=== PATIENT | female | born 1995 | race Caucasian/White ===

== ENCOUNTER → 2017-07-31 | Outpatient (CLI) | payer OTHER | LOC: M LRY 16:52 | PROVIDERS: ATTEND Nurse Practitioner Family | DX: J02.9 Acute pharyngitis, unspecified (principal) ==

== ENCOUNTER → 2017-07-31 | Outpatient (REF) | payer OTHER | LOC: M SFHCLERA 18:54 | PROVIDERS: ATTEND Nurse Practitioner Family | DX: J02.9 Acute pharyngitis, unspecified (principal) ==

== ENCOUNTER → 2018-09-07 | Outpatient (REF) | payer OTHER | LOC: M SFHCLERA 13:17 | DX: N39.0 Urinary tract infection, site not specified (principal) | CPT/HCPCS: 87086 ==

== ENCOUNTER → 2018-10-12 | Outpatient (CLI) | payer MEDICAID, OTHER, SELFPAY | LOC: M WUC 15:54 | PROVIDERS: ATTEND Physician Assistant | DX: Z33.1 Pregnant state, incidental (principal) ==

== ENCOUNTER → 2018-10-23 | Outpatient (REF) | payer OTHER, SELFPAY ==
[2018-10-23 19:04] LABS: CHLAMYDIA DNA AMPLIFICATION NEGATIVE (NEGATIVE); GC DNA AMPLIFICATION NEGATIVE (NEGATIVE)
== END ==
LOC: M SFHCLERA 09:54
PROVIDERS: ATTEND Physician Assistant
DX: N39.0 Urinary tract infection, site not specified (principal)

== ENCOUNTER → 2021-06-07 | Outpatient (REF) | payer OTHER | LOC: M LAB REF 11:53 | PROVIDERS: ATTEND Physician Assistant | DX: J00 Acute nasopharyngitis [common cold] (principal) ==

== ENCOUNTER → 2021-10-07 | Outpatient (REF) ==
[2021-10-07 14:22] LABS: RSV AMPLIFICATION NEGATIVE (NEGATIVE)
== END ==
LOC: M LABSMTC 11:49
PROVIDERS: ATTEND Family Medicine
DX: Z20.822 Contact with and (suspected) exposure to COVID-19 (principal)

== ENCOUNTER 2021-10-30 09:37 | Emergency (ER) | payer OTHER ==
[~2021-10-30] VITALS: Ht 160 cm; Wt 51.8 kg
--- OUTSIDE RECORDS SUMMARY | 2021-10-30 09:43 | CCD ---
Author Author [facility] Organization [facility] Address Unknown Phone Unavailable Care Team Providers Care Litigation Coordinator Name Role Phone [place]-An, Marlena DO Unavailable Unavailable [place]-An, Marlena DO Unavailable Unavailable [place]-An, Marlena DO Unavailable Unavailable [place]-An, Marlena DO Unavailable Unavailable Ria-An, Marlena DO Unavailable Unavailable Ria-An, Marlena DO Unavailable Unavailable Ria-An, Marlena DO Unavailable Unavailable [place]-An, Marlena DO Unavailable Unavailable [place]-An, Marlena DO Unavailable Unavailable Ria-An, Marlena DO Unavailable Unavailable [place]-An, Marlena DO Unavailable Unavailable [place]-An, Marlena DO Unavailable Unavailable Ria-An, Marlena DO Unavailable Unavailable [place]-An, Marlena DO Unavailable Unavailable Ria-An, Marlena DO Unavailable Unavailable Ria-An, Marlena DO Unavailable Unavailable [place]-An, Marlena DO Unavailable Unavailable [place]-An, Marlena DO Unavailable Unavailable [place]-An, Marlena DO Unavailable Unavailable Ria-An, Marlena DO Unavailable Unavailable [place]-An, Marlena DO Unavailable Unavailable Ria-An, Marlena DO Unavailable Unavailable [place]-An, Marlena DO Unavailable Unavailable [place]-An, Marlena DO Unavailable Unavailable [place]-An, Marlena DO Unavailable Unavailable [place]-An, Marlena DO Unavailable Unavailable Ria-An, Marlena DO Unavailable Unavailable [place]-An, Marlena DO Unavailable Unavailable [place]-An, Marlena DO Unavailable Unavailable Ria-An, Marlena DO Unavailable Unavailable Ria-An, Marlena DO Unavailable Unavailable Ria-An, Marlena DO Unavailable Unavailable [place]-An, Marlena DO Unavailable Unavailable Ria-An, Marlena DO Unavailable Unavailable [place]-An, Marlena DO Unavailable Unavailable [place]-An, Marlena DO Unavailable Unavailable [place]-An, Marlena DO Unavailable Unavailable Ria-An, Marlena DO Unavailable Unavailable [place]-An, Marlena DO Unavailable Unavailable [place]-An, Marlena DO Unavailable Unavailable Ria-An, Marlena DO Unavailable Unavailable Ria-An, Marlena DO Unavailable Unavailable [place]-An, Marlena DO Unavailable Unavailable Ria-An, Marlena DO Unavailable Unavailable Ria-An, Marlena DO Unavailable Unavailable Ria-An, Marlena DO Unavailable Unavailable Ria-An, Marlena DO Unavailable Unavailable Ria-An, Marlena DO Unavailable Unavailable [place]-An, Marlena DO Unavailable Unavailable Ria-An, Marlena DO Unavailable Unavailable Ria-An, Marlena DO Unavailable Unavailable Ria-An, Marlena DO Unavailable Unavailable [place]-An, Marlena DO Unavailable Unavailable [place]-An, Marlena DO Unavailable Unavailable [place]-An, Marlena DO Unavailable Unavailable Ria-Na, Marlena DO Unavailable Unavailable Ria-An, Marlena DO Unavailable Unavailable Ria-An, Marlena DO Unavailable Unavailable [place]-An, Marlena DO Unavailable Unavailable [place]-An, Marlena DO Unavailable Unavailable [place]-An, Marlena DO Unavailable Unavailable Ria-An, Marlena DO Unavailable Unavailable [place]-An, Marlena DO Unavailable Unavailable Ria-An, Marlena DO Unavailable Unavailable [place]-An, Marlena DO Unavailable Unavailable Ria-An, Marlena DO Unavailable Unavailable [place]-An, Marlena DO Unavailable Unavailable Ria-An, Marlena DO Unavailable Unavailable [place]-An, Marlena DO Unavailable Unavailable Doctor Provided, Family PHYS No Family Unavailable U navailable RAMSEY, RILEY KAYLEEN INSURANCE COORDINATOR Unavailable Unavailable RAMSEY, RILEY KAYLEEN INSURANCE COORDINATOR Unavailable Unavailable RAMSEY, RILEY KAYLEEN INSURANCE COORDINATOR Unavailable Unavailable RAMSEY, RILEY KAYLEEN INSURANCE COORDINATOR Unavailable Unavailable RAMSEY, RILEY KAYLEEN INSURANCE COORDINATOR Unavailable Unavailable RAMSEY, RILEY KAYLEEN INSURANCE COORDINATOR Unavailable Unavailable RAMSEY, RILEY KAYLEEN INSURANCE COORDINATOR Unavailable Unavailable RAMSEY, RILEY KAYLEEN INSURANCE COORDINATOR Unavailable Unavailable RAMSEY, RILEY KAYLEEN INSURANCE COORDINATOR Unavailable Unavailable RAMSEY, RILEY KAYLEEN INSURANCE COORDINATOR Unavailable Unavailable RAMSEY, RILEY KAYLEEN INSURANCE COORDINATOR Unavailable Unavailable RAMSEY, RILEY KAYLEEN INSURANCE COORDINATOR Unavailable Unavailable RAMSEY, RILEY KAYLEEN INSURANCE COORDINATOR Unavailable Unavailable RAMSEY, RILYE KAYLEEN INSURANCE COORDINATOR Unavailable Unavailable RAMSEY, RILEY KAYLEEN INSURANCE COORDINATOR Unavailable Unavailable RAMSEY, RILEY KAYLEEN INSURANCE COORDINATOR Unavailable Unavailable RAMSEY, RILEY KAYLEEN INSURANCE COORDINATOR Unavailable Unavailable RAMSEY, RILEY KAYLEEN INSURANCE COORDINATOR Unavailable Unavailable RAMSEY, RILEY KAYLEEN INSURANCE COORDINATOR Unavailable Unavailable RAMSEY, RILEY KAYLEEN INSURANCE COORDINATOR Unavailable Unavailable RAMSEY, RILEY KAYLEEN INSURANCE COORDINATOR Unavailable Unavailable RAMSEY, RILEY KAYLEEN INSURANCE COORDINATOR Unavailable Unavailable RAMSEY, RILEY KAYLEEN INSURANCE COORDINATOR Unavailable Unavailable Didier, D Vito INSURANCE COORDINATOR Unavailable Unavailable Didier, D Vito INSURANCE COORDINATOR Unavailable Unavailable Didier, D Vito INSURANCE COORDINATOR Unavailable Unavailable Didier, D Vito INSURANCE COORDINATOR Unavailable Unavailable Didier, D Vito INSURANCE COORDINATOR Unavailable Unavailable Didier, D Vito INSURANCE COORDINATOR Unavailable Unavailable Didier, D Vito INSURANCE COORDINATOR Unavailable Unavailable Didier, D Vito INSURANCE COORDINATOR Unavailable Unavailable Didier, D Vito INSURANCE COORDINATOR Unavailable Unavailable Didier, D Vito INSURANCE COORDINATOR Unavailable Unavailable Didier, D Vito INSURANCE COORDINATOR Unavailable Unavailable Didier, D Vito INSURANCE COORDINATOR Unavailable Unavailable Didier, D Vito INSURANCE COORDINATOR Unavailable Unavailable Didier, D Vito INSURANCE COORDINATOR Unavailable Unavailable Didier, D Vito INSURANCE COORDINATOR Unavailable Unavailable Didier, D Vito INSURANCE COORDINATOR Unavailable Unavailable Didier, D Vito INSURANCE COORDINATOR Unavailable Unavailable Didier, D Vito INSURANCE COORDINATOR Unavailable Unavailable Didier, D Vito INSURANCE COORDINATOR Unavailable Unavailable Didier, D Vito INSURANCE COORDINATOR Unavailable Unavailable Didier, D Vito INSURANCE COORDINATOR Unavailable Unavailable Didier, D Vito INSURANCE COORDINATOR Unavailable Unavailable Didier, D Vito INSURANCE COORDINATOR Unavailable Unavailable Didier, D Vito INSURANCE COORDINATOR Unavailable Unavailable Didier, D Vito INSURANCE COORDINATOR Unavailable Unavailable Didier, D Vito INSURANCE COORDINATOR Unavailable Unavailable Didier, D Vito INSURANCE COORDINATOR Unavailable Unavailable Didier, D Vito INSURANCE COORDINATOR Unavailable Unavailable Didier, D Vito INSURANCE COORDINATOR Unavailable Unavailable Didier, D Vito INSURANCE COORDINATOR Unavailable Unavailable Didier, D Vito INSURANCE COORDINATOR Unavailable Unavailable Didier, D Vito INSURANCE COORDINATOR Unavailable Unavailable Didier, D Vito INSURANCE COORDINATOR Unavailable Unavailable Didier, D Vito INSURANCE COORDINATOR Unavailable Unavailable Didier, D Vito INSURANCE COORDINATOR Unavailable Unavailable Didier, D Vito INSURANCE COORDINATOR Unavailable Unavailable Didier, D Vito INSURANCE COORDINATOR Unavailable Unavailable Didier, D Vito INSURANCE COORDINATOR Unavailable Unavailable Didier, D Vito INSURANCE COORDINATOR Unavailable Unavailable Didier, D Vito INSURANCE COORDINATOR Unavailable Unavailable Didier, D Vito INSURANCE COORDINATOR Unavailable Unavailable Huitron, L Kristine INSURANCE COORDINATOR Unavailable Unavailable Huitron, L Kristine INSURANCE COORDINATOR Unavailable Unavailable Huitron, L Kristine INSURANCE COORDINATOR Unavailable Unavailable Huitron, L Kristine INSURANCE COORDINATOR Unavailable Unavailable Huitron, L Kristine INSURANCE COORDINATOR Unavailable Unavailable Huitron, L Kristine INSURANCE COORDINATOR Unavailable Unavailable Huitron, L Kristine INSURANCE COORDINATOR Unavailable Unavailable Huitron, L Kristine INSURANCE COORDINATOR Unavailable Unavailable Huitron, L Kristine INSURANCE COORDINATOR Unavailable Unavailable Huitron, L Kristine INSURANCE COORDINATOR Unavailable Unavailable Huitron, L Kristine INSURANCE COORDINATOR Unavailable Unavailable Huitron, L Kristine INSURANCE COORDINATOR Unavailable Unavailable Huitron, L Kristine INSURANCE COORDINATOR Unavailable Unavailable Huitron, L Kristine INSURANCE COORDINATOR Unavailable Unavailable Huitron, L Kristine INSURANCE COORDINATOR Unavailable Unavailable Huitron, L Kristine INSURANCE COORDINATOR Unavailable Unavailable Huitron, L Kristine INSURANCE COORDINATOR Unavailable Unavailable Huitron, L Kristine INSURANCE COORDINATOR Unavailable Unavailable Huitron, L Kristine INSURANCE COORDINATOR Unavailable Unavailable Huitron, L Kristine INSURANCE COORDINATOR Unavailable Unavailable Huitron, L Kristine INSURANCE COORDINATOR Unavailable Unavailable Huitron, L Kristine INSURANCE COORDINATOR Unavailable Unavailable Huitron, L Kristine INSURANCE COORDINATOR Unavailable Unavailable Huitron, L Kristine INSURANCE COORDINATOR Unavailable Unavailable Huitron, L Kristine INSURANCE COORDINATOR Unavailable Unavailable Huitron, L Kristine INSURANCE COORDINATOR Unavailable Unavailable Huitron, L Kristine INSURANCE COORDINATOR Unavailable Unavailable Huitron, L Kristine INSURANCE COORDINATOR Unavailable Unavailable Huitron, L Kristine INSURANCE COORDINATOR Unavailable Unavailable Huitron, L Kristine INSURANCE COORDINATOR Unavailable Unavailable Huitron, L Kristine INSURANCE COORDINATOR Unavailable Unavailable Huitron, L Kristine INSURANCE COORDINATOR Unavailable Unavailable Huitron, L Kristine INSURANCE COORDINATOR Unavailable Unavailable Huitron, L Kristine INSURANCE COORDINATOR Unavailable Unavailable Huitron, L Kristine INSURANCE COORDINATOR Unavailable Unavailable Huitron, L Kristine INSURANCE COORDINATOR Unavailable Unavailable Huitron, L Kristine INSURANCE COORDINATOR Unavailable Unavailable Huitron, L Kristine INSURANCE COORDINATOR Unavailable Unavailable Huitron, L Kristine INSURANCE COORDINATOR Unavailable Unavailable Huitron, L Kristine INSURANCE COORDINATOR Unavailable Unavailable Huitron, L Kristine INSURANCE COORDINATOR Unavailable Unavailable Huitron, L Kristine INSURANCE COORDINATOR Unavailable Unavailable Moshe Ramirez MD Unavailable Unavailable Moshe Ramirez MD Unavailable Unavailable Moshe Ramirez MD Unavailable Unavailable Moshe Ramirez MD Unavailable Unavailable Moshe Ramirez MD Unavailable Unavailable Moshe Ramirez MD Unavailable Unavailable Moshe Ramirez MD Unavailable Unavailable Moshe Ramirez MD Unavailable Unavailable Moshe Ramirez MD Unavailable Unavailable Moshe Ramirez MD Unavailable Unavailable Moshe Ramirez MD Unavailable Unavailable Moshe Ramirez MD Unavailable Unavailable Moshe Ramirez MD Unavailable Unavailable Moshe Ramirez MD Unavailable Unavailable Moshe Ramirez MD Unavailable Unavailable Moshe Ramirez MD Unavailable Unavailable Moshe Ramirez MD Unavailable Unavailable Moshe Ramirez MD Unavailable Unavailable Moshe Ramirez MD Unavailable Unavailable Moshe Ramirez MD Unavailable Unavailable Moshe Ramirez MD Unavailable Unavailable Moshe Ramirez MD Unavailable Unavailable Moshe Ramirez MD Unavailable Unavailable Moshe Ramirez MD Unavailable Unavailable Moshe Ramirez MD Unavailable Unavailable Moshe Ramirez MD Unavailable Unavailable Moshe Ramirez MD Unavailable Unavailable Moshe Ramirez MD Unavailable Unavailable Moshe Ramirez MD Unavailable Unavailable Moshe Ramirez MD Unavailable Unavailable Moshe Ramirez MD Unavailable Unavailable Moshe Ramirez MD Unavailable Unavailable Moshe Ramirez MD Unavailable Unavailable Moshe Ramirez MD Unavailable Unavailable Moshe Ramirez MD Unavailable Unavailable Moshe Ramirez MD Unavailable Unavailable Moshe Ramirez MD Unavailable Unavailable Moshe Ramirez MD Unavailable Unavailable Moshe Ramirez MD Unavailable Unavailable Moshe Ramirez MD Unavailable Unavailable Moshe Ramirez MD Unavailable Unavailable Moshe Ramirez MD Unavailable Unavailable Moshe Ramirez MD Unavailable Unavailable Moshe Ramirez MD Unavailable Unavailable Moshe Ramirez MD Unavailable Unavailable Rosalva Gaming MD Unavailable Unavailable Rosalva Gaming MD Unavailable Unavailable Rosalva Gaming MD Unavailable Unavailable Rosalva Gaming MD Unavailable Unavailable Rosalva Gaming MD Unavailable Unavailable Rosalva Gaming MD Unavailable Unavailable Kunnumpurath, F Lena MD Unavailable Unavailable Kunnumpurath, F Lena MD Unavailable Unavailable Kunnumpurath, F Lena MD Unavailable Unavailable Kunnumpurath, F Lena MD Unavailable Unavailable Kunnumpurath, F Lena MD Unavailable Unavailable Kunnumpurath, F Lena MD Unavailable Unavailable [place]unnump[place]ath, F Lena MD Unavailable Unavailable Kunnump[place]ath, F Lena MD Unavailable Unavailable Kunnumpurath, F Lena MD Unavailable Unavailable Kunnumpurath, F Lena MD Unavailable Unavailable Kunnumpurath, F Lena MD Unavailable Unavailable Kunnumpurath, F Lena MD Unavailable Unavailable Kunnumpurath, F Lena MD Unavailable Unavailable Kunnumpurath, F Lena MD Unavailable Unavailable Kunnumpurath, F Lena MD Unavailable Unavailable Kunnumpurath, F Lena MD Unavailable Unavailable Kunnumpurath, F Lena MD Unavailable Unavailable Kunnumpurath, F Lena MD Unavailable Unavailable Kunnumpurath, F Lena MD Unavailable Unavailable Kunnumpurath, F Lena MD Unavailable Unavailable Kunnumpurath, F Lena MD Unavailable Unavailable Kunnumpurath, F Lena MD Unavailable Unavailable Kunnumpurath, F Lena MD Unavailable Unavailable Kunnumpurath, F Lena MD Unavailable Unavailable Kunnumpurath, F Lena MD Unavailable Unavailable Kunnumpurath, F Lena MD Unavailable Unavailable Kunnumpurath, F Lena MD Unavailable Unavailable Kunnumpurath, F Lena MD Unavailable Unavailable Kunnumpurath, F Lena MD Unavailable Unavailable Kunnumpurath, F Lena MD Unavailable Unavailable Kunn[place]urath, F Lena MD Unavailable Unavailable Kunnumpurath, F Lena MD Unavailable Unavailable Kunnumpurath, F Lena MD Unavailable Unavailable Kunnumpurath, F Lena MD Unavailable Unavailable Kunnumpurath, F Lena MD Unavailable Unavailable Kunnumpurath, F Lena MD Unavailable Unavailable Kunnumpurath, F Lena MD Unavailable Unavailable Kunnumpurath, F Lena MD Unavailable Unavailable Kunnumpurath, F Lena MD Unavailable Unavailable Kunnumpurath, F Lena MD Unavailable Unavailable RING, K VANESA PA Unavailable Unavailable RING, K VANESA PA Unavailable Unavailable RING, K VANESA PA Unavailable Unavailable RING, K VANESA PA Unavailable Unavailable RING, K VANESA PA Unavailable Unavailable RING, K VANESA PA Unavailable Unavailable RING, K VANESA PA Unavailable Unavailable RING, K VANESA PA Unavailable Unavailable RING, K VANESA PA Unavailable Unavailable RING, K VANESA PA Unavailable Unavailable RING, K VANESA PA Unavailable Unavailable RING, K VANESA PA Unavailable Unavailable RING, K VANESA PA Unavailable Unavailable RING, K VANESA PA Unavailable Unavailable RING, K VANESA PA Unavailable Unavailable RING, K VANESA PA Unavailable Unavailable RING, K VANESA PA Unavailable Unavailable RING, K VANESA PA Unavailable Unavailable RING, K VANESA PA Unavailable Unavailable RING, K VANESA PA Unavailable Unavailable RING, K VANESA PA Unavailable Unavailable RING, K VANESA PA Unavailable Unavailable RING, K VANESA PA Unavailable Unavailable [facility], [facility] Unavailable Unavailable of [facility] Medicine Occupation Unavailable Unavailable BUMBANAC, A STAR INSURANCE COORDINATOR Unavailable Unavailable BUMBANAC, A STAR INSURANCE COORDINATOR Unavailable Unavailable BUMBANAC, A STAR INSURANCE COORDINATOR Unavailable Unavailable BUMBANAC, A STAR INSURANCE COORDINATOR Unavailable Unavailable BUMBANAC, A STAR INSURANCE COORDINATOR Unavailable Unavailable BUMBANAC, A STAR INSURANCE COORDINATOR Unavailable Unavailable BUMBANAC, A STAR INSURANCE COORDINATOR Unavailable Unavailable BUMBANAC, A STAR INSURANCE COORDINATOR Unavailable Unavailable BUMBANAC, A STAR INSURANCE COORDINATOR Unavailable Unavailable BUMBANAC, A STAR INSURANCE COORDINATOR Unavailable Unavailable BUMBANAC, A STAR INSURANCE COORDINATOR Unavailable Unavailable BUMBANAC, A STAR INSURANCE COORDINATOR Unavailable Unavailable BUMBANAC, A STAR INSURANCE COORDINATOR Unavailable Unavailable BUMBANAC, A STAR INSURANCE COORDINATOR Unavailable Unavailable BUMBANAC, A STAR INSURANCE COORDINATOR Unavailable Unavailable BUMBANAC, A STAR INSURANCE COORDINATOR Unavailable Unavailable BUMBANAC, A STAR INSURANCE COORDINATOR Unavailable Unavailable BUMBANAC, A STAR INSURANCE COORDINATOR Unavailable Unavailable BUMBANAC, A STAR INSURANCE COORDINATOR Unavailable Unavailable BUMBANAC, A STAR INSURANCE COORDINATOR Unavailable Unavailable BUMBANAC, A STAR INSURANCE COORDINATOR Unavailable Unavailable BUMBANAC, A STAR INSURANCE COORDINATOR Unavailable Unavailable BUMBANAC, A STAR INSURANCE COORDINATOR Unavailable Unavailable BUMBANAC, A STAR INSURANCE COORDINATOR Unavailable Unavailable BUMBANAC, A STAR INSURANCE COORDINATOR Unavailable Unavailable BUMBANAC, A STAR INSURANCE COORDINATOR Unavailable Unavailable BUMBANAC, A STAR INSURANCE COORDINATOR Unavailable Unavailable BUMBANAC, A STAR INSURANCE COORDINATOR Unavailable Unavailable BUMBANAC, A STAR INSURANCE COORDINATOR Unavailable Unavailable BUMBANAC, A STAR INSURANCE COORDINATOR Unavailable Unavailable BUMBANAC, A STAR INSURANCE COORDINATOR Unavailable Unavailable Re-disclosure Warning The records that you are about to access may contain information from federally-assisted alcohol or drug abuse programs. If such information is present, then the following federally mandated warning applies: This information has been disclosed to you from records protected by federal confidentiality rules (42 CFR part 2). The federal rules prohibit you from making any further disclosure of this information unless further disclosure is expressly permitted by the written consent of the person to whom it pertains or as otherwise permitted by 42 CFR part 2. A general authorization for the release of medical or other information is NOT sufficient for this purpose. The Federal rules restrict any use of the information to criminally investigate or prosecute any alcohol or drug abuse patient.The records that you are about to access may contain highly sensitive health information, the redisclosure of which is protected by Article 27-F of the [facility] Public Health law. If you continue you may have access to information: Regarding HIV / AIDS; Provided by facilities licensed or operated by the [facility] Office of Mental Health; or Provided by the [facility] Office for People With Developmental Disabilities. If such information is present, then the following [facility] mandated warning applies: This information has been disclosed to you from confidential records which are protected by state law. State law prohibits you from making any further disclosure of this information without the specific written consent of the person to whom it pertains, or as otherwise permitted by law. Any unauthorized further disclosure in violation of state law may result in a fine or correction sentence or both. A general authorization for the release of medical or other information is NOT sufficient authorization for further disc losure. Allergies and Adverse Reactions Type Description Substance Reaction Status Data Source(s ) Propensity to adverse reactions NKDA - NO KNOWN DRUG ALLERGI ES NKDA - NO KNOWN DRUG ALLERGIES [facility] Food allergy milk milk [facility] Family History Family Member Name Family Member Gender Family Member Status Date o f Status Description Data Source(s) Unknown Unknown Problem [facility]ENT ([facility] Unknown Male Problem [facility] ([facility]) Encounters Encounter Providers Location Date Indications Data Source(s ) Outpatient Attender: KAYLEEN RAMSEY INSURANCE COORDINATOR 021 03:32:00 PM EDT - 09/13/2021 03:32:00 PM EDT [facility] Outpatient Attender: Lena Amberly MDConsultant: CLINIC [facility] 07/02/2021 08:36:00 AM EDT - 07/02/2021 08:36:00 AM EDT [facility] Outpatient Attender: Lena Amberly MDConsultant: [facility] 06/25/2021 02:32:00 PM EDT - 06/25/2021 02:32:00 PM EDT [facility] Outpatient Attender: Vito Velásquez NPConsultant: [facility] 06/17/2021 07:51:00 AM EDT - 06/17/2021 07:51:00 AM EDT [facility] Outpatient Attender: VANESA Poon 06/07/2021 08:45:00 AM EDT [facility] ([facility] Outpatient Attender: Lena Gaming MDConsultant: [facility] 04/26/2021 10:37:00 AM EDT - 04/26/2021 10:37:00 AM EDT [facility] Outpatient Attender: ADRIANNA KRAMER NPConsultant: [facility] 04/20/2021 02:30:00 PM EDT - [facility]20[facility] ADRIANNA KRAMER NPConsultant: [facility] 02/25/2021 09:58:00 AM EDT - 02/25/2021 09:58:00 AM EDT [facility] Outpatient Attender: KAYLEEN PARKSefe rrer: KAYLEEN RAMSEY NPConsultant: [facility] 01/19/2021 07:42:00 PM EST - 01/19/2021 07:52:00 PM [facility] Outpatient Attender: ADRIANNA KRAMER NP 01/19 03:42:00 PM EST - 01/19/2021 03:42:00 PM [facility] Outpatient Attender: ADRIANNA KRAMER NP 12/25 09:00:00 AM [facility] - 12/25/2020 09:00:00 AM [facility] Outpatient Attender: Marlena Tavarezone DO 2020 07:20:00 AM EST [facility] COVID TESTING [facility] COVID TESTING Outpatient Attender: Marlena Tavarezone DO 2020 06:07:00 AM EST [facility] COVID TESTING [facility] COVID TESTING Outpatient Attender: Marlena Vargas DO 2019 09:38:00 AM EST [facility] COVID TESTING [facility] COVID TESTING Outpatient Attender: Mary Ramirez MD 11/10/2020 09:17:00 AM EST [facility] Outpatient Attender: Marlena Vargas DO 2019 09:32:00 AM EST [facility] COVID TESTING Z20.828 [facility] COVID TESTING Z20.828 Outpatient Attender: Lena Gaming MD 1 01/04/2020 08:54:00 AM EST - 11/03/2020 08:54:00 AM [facility] Outpatient Attender: Marlena Vargas DO 2019 09:20:00 AM EST [facility] COVID19 TESTING [facility] COVID19 TESTING Outpatient Attender: Marlena Vargas DO 2019 01:18:00 PM [facility] COVID TESTING [facility] COVID TESTING Outpatient Attender: KAYLEEN RAMSEY NP 10:01:00 AM EST - 10/19/2020 10:01:00 AM [facility] Outpatient Attender: Kristine Huitron NPReferrer: No Family Doctor Provided 09/25/2020 10:42:00 AM EST - 09/25/2020 11:08:00 AM [facility] Outpatient 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: 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 Outpatient Attender: KAYLEEN RAMSEY NP 020 09:01:00 AM EDT - 09/16/2020 09:01:00 AM [facility] Outpatient Attender: KAYLEEN RAMSEY NP 09:43:00 AM EDT - 09/08/2020 09:43:00 AM EDT [facility] Outpatient Attender: KAYLEEN RAMSEY INSURANCE COORDINATOR 02:11:00 PM EDT - 08/18/2020 02:11:00 PM EDT [facility] Outpatient Attender: KAYLEEN RAMSEY INSURANCE COORDINATOR 11:03:00 AM EDT - 07/29/2020 11:03:00 AM EDT [facility] Immunizations Vaccine Date Status Description Data Source(s) COVID-19 VACCINE Moderna 04/06/2021 12:00:00 AM EDT completed [facility] Complete: YESThis Data wa s Submitted to [facility] Via [employer]. COVID-19 VACCINE Moderna 03/01/2021 12:00:00 AM EDT completed [facility] Vacc[facility] Complete: NOThis Data was Submitted to [facility] Via DNART LIMITADA. Medications Medication Brand Name Start Date Product Form Dose Route Admi nistrative Instructions Pharmacy Instructions Status Indications Reaction Description Data Source(s) NITROFURANTOIN, MACROCRYSTALS 25 MG / Ni trofurantoin, Monohydrate 75 MG Oral Capsule Nitrofurantoin Monohyd/M-Cryst Nitrofurantoin Monohyd/M-Cryst 11/23/2018 12:23:41 PM EST 100 MG completed [facility] Vit No.[id number] ( Vitamin Tablet) 27 mg iron- 800 mcg tablet 11/23/2018 10:56:14 AM EST 1 EACH [facility] Insurance Providers Payer name Policy type / Coverage type Policy ID Covered democrat ID Covered democrat's relationship to shaw Policy Shaw Plan Information [facility] U [id number] Se lf [id number] MEDICAID M [id number] Self [id number] [facility] U [id number] Self [id number] [facility] [place] [id number] [facility] Commercial [id number] Self [id number] MEDICAID [id number] SP [id number] SELF PAY ONLY [facility] [id number] [facility] [id number] MEDICAID -O/P EMERGENCY ROOM [id number] 18 [id number] ANSI-Not a Secondary Insurance [id number] ANSI-Not a Secondary Insurance [id number] [facility] Commercial [id number] [facility] - O/P [id number] 01 [id number] ANSI-Not a Secondary Insurance [id number] [facility] O [id number] P [id number] [facility] PPO O [id number] C [id number] [facility] [id number] [facility] [id number] [facility] Commercial [id number] Family Dependent [id number] [facility] [id number] 19 [id number] [facility] -PHYSICIAN [id number] 18 [id number] [facility] -PHYSICIAN [id number] [facility] -I/P [id number] 18 [id number] [facility]-O/P [id number] 19 [id number] [facility] [id number] 18 [id number] MEDICAID-O/P [id number] MEDICAID [facility] [id number] 18 [id number] MEDICAID -PHYSICIAN [id number] MEDICAID -I/P [id number] 18 [id number] [facility] AT [facility] [id number] 18 [id number] [facility] Commercial [id number] Family Dependent [id number] [facility] [place] UNAVAILABLE 01 UNAVAILABLE [facility] Commercial [id number] Family Dependent [id number] [facility] [id number] 19 [id number] [facility] [place] -O/P [id number] 01 [id number] [facility] [place] [facility] [id number] 01 [id number] [place] Commercial [id number] Family Dependent [facility] [id number] [facility] [id number] 18 [id number] [facility] [id number] 18 [id number] [facility] PLAN [id number] [facility] [id number] Problems, Conditions, and Diagnoses Code Display Name Description Problem Type Effective Dates Data Source(s) O21181 Encounter for routine checking of intrau terine contraceptive device Encounter for routine checking of intrauterine contraceptive device Diagnosis 09/13/2021 03:32:00 PM EDT [facility] N760 Acute vaginitis Acute vaginitis Diagnosis 09/13/2021 03:3 2:00 PM EDT [facility] [id number] Encounter for gynecological examination (general) (routine) without abnormal findings Encounter for gynecological examination (general) (routine) without abnormal findings Diagnosis 09/13/2021 03:32:00 PM EDT [facility] D649 Anemia, unspecified Anemia, unspecified Diagnosis 0 06/25/2021 02:32:00 PM EDT [facility] N390 Urinary tract infection, site not specif ied Urinary tract infection, site not specified Diagnosis 06/17/2021 07:51:00 AM EDT [facility] [id number] CONTACT WITH AND SUSPECTED EXPOSURE TO C OVID-19 CONTACT WITH AND SUSPECTED EXPOSURE TO COVID-19 Diagnosis 12/25/2020 09:00:00 AM EST Ca [facility] E74200 Encounter for insertion of intrauterine contraceptive device Encounter for insertion of intrauterine contraceptive device Diagnosis 09:01:00 AM EDT [facility] Z538 Procedure and treatment not carried out for other reasons Procedure and treatment not carried out for other reasons Diagnosis 09/08/2020 09:43:00 AM EDT [facility] Surgeries/Procedures Procedure Description Date Indications Data Source(s) OFFICE OUTPATIENT VISIT 25 MINUTES 06/07/2021 12:00:00 AM EDT [facility] ([facility], [facility]) Results ID Date Data Source [id number] 10/07/2021 11:15:00 AM EST [facility] Name Value Range Interpretation Code Description Data Carmen rce(s) Supporting Document(s) SARS coronavirus 2 RNA [Presence] in Res piratory specimen by PRAVIN with probe detection NEGATIVE [facility] This lab was ordered by [facility] a nd reported by [facility]. ID Date Data Source [id number] 09/17/2021 07:40:00 AM EDT [facility] Name Value Range Interpretation Code Description Data Carmen rce(s) Supporting Document(s) SOURCE: Genital [facility] Chlamydia trachomatis rRNA [Presence] in Unspecified specimen by Probe and target amplification method Negative Negative [facility] Neisseria gonorrhoeae rRNA [Presence] in Unspecified specimen by Probe and target amplification method Negative Negative [facility] ID Date Data Source [id number] 09/16/2021 08:28:00 PM EDT [facility] Name Value Range Interpretation Code Description Data Carmen rce(s) Supporting Document(s) SOURCE: Genital [facility] Kimberly sp rRNA [Presence] in Vaginal fluid by DNA probe Negative N egative [facility] Gardnerella vaginalis rRNA [Presence] in Genital specimen by DNA probe Negative Negative [facility] Trichomonas vaginalis rRNA [Presence] in Genital specimen by DNA probe Negative Negative [facility] ID Date Data Source [id number] 07/02/2021 02:48:00 PM EDT [facility] Name Value Range Interpretation Code Description Data Carmen rce(s) Supporting Document(s) Iron [Mass/volume] in Serum or Plasma 91 UG/DL 42 - 135 [facility] ID Date Data Source [id number] 07/02/2021 02:33:00 PM EDT [facility] Name Value Range Interpretation Code Description Data Carmen rce(s) Supporting Document(s) CBC NO DIFF [facility] ital COMPLETE BLOOD COUNT Leukocytes [#/volume] in Blood by Automated count 4.7 10^3/uL 4.2 - 1 1.0 [facility] Erythrocytes [#/volume] in Blood by Automated count 3.99 10^6/uL 4. 20 - 5.40 L [facility] Hemoglobin [Mass/volume] in Blood 12.7 g/dL 12.0 - 16.0 [facility] Hematocrit [Volume Fraction] of Blood by Automated count 37.1 % 3 7.0 - 47.0 [facility] Erythrocyte mean corpuscular volume [Entitic volume] by Auto mated count 93.0 fL 81.0 - 101 [facility] Erythrocyte mean corpuscular hemoglobin [Entitic mass] by Automated count 31.8 pg 27.0 - 34.0 [facility] Erythrocyte mean corpuscular hemoglobin concentration [Mass/volume] by Automated count 34.2 g/dL 31.0 - 36.0 [facility] Erythrocyte distribution width [Ratio] by Automated count 13.1 % 11.5 - 14.5 [facility] Platelets [#/volume] in Blood by Automated count 231 10^3/uL 150 - 45 0 [facility] Platelet mean volume [Entitic volume] in Blood by Automated count 9.9 fL 7.4 - 10.4 [facility] ID Date Data Source [id number] 06/21/2021 07:49:00 AM EDT [facility] Value Range Interpretation Code Description Data Carmen rce(s) Supporting Document(s) CULTURE URINE [facility] spital _CULTURE URINE_$$[id number]$$380158$$144566$$951760$$889246$$880649$$287257$$809889$$748190$$ 836785$$060797$$699547$$274436$$560888$$944472$$880174$$990131$$454602$$146243$$ 735505$$578429$$928368$$460168$$517825$$681473$$166656$$962932 -- Continued on next page --Patient: YUE Welch Order: [id number] Page 2Culture: CULTURE URINE Status: Final ====$$[id number]$$[id number] DATE/TIME: 06/20/2021 11:05Culture: CULTURE URINE Status: FinalUrine Culture,Comprehensive: T0Rljbm urogenital flora25,000-50,000 colony forming units per mLP1 Test performed by: [facility] Cathryn GUY #: [id number] [address] [place] [address] [phone] [facility] [address]Aefvshb Director : Reyes José MD NPI #:Cathead Operator : 06/21/21.0749.XMT.SENT REF 06/21/21.0749.CM .to DIDIER RUTH via fax ID Date Data Source [id number] 06/07/2021 09:25:00 AM EDT [facility] ([facility]) Name Value Range Interpretation Code Description Data Carmen rce(s) Supporting Document(s) Group A Strep Culture Laboratory test result [facility] ([facility]) No Rx ID Date Data Source [id number] 06/07/2021 12:00:00 AM EDT [facility] Name Value Range Interpretation Code Description Data Carmen rce(s) Supporting Document(s) SARS-CoV2 Rapid Antigen Negative [facility] This lab was reported by [facility]. ID Date Data Source [id number] 04/26/2021 08:06:00 PM EDT [facility] Name Value Range Interpretation Code Description Data Carmen rce(s) Supporting Document(s) Ferritin [Mass/volume] in Serum or Plasma 147.3 ng/mL 3.0 - 105 H [facility] ID Date Data Source [id number] 04/26/2021 08:04:00 PM EDT [facility] Name Value Range Interpretation Code Description Data Carmen rce(s) Supporting Document(s) Iron [Mass/volume] in Serum or Plasma 142 UG/DL 42 - 135 H [facility] ID Date Data Source [id number] 04/26/2021 03:04:00 PM EDT [facility] Name Value Range Interpretation Code Description Data Carmen rce(s) Supporting Document(s) CBC NO DIFF [facility] COMPLETE BLOOD COUNT Leukocytes [#/volume] in Blood by Automated count 5.8 10^3/uL 4.2 - 1 1.0 [facility] Erythrocytes [#/volume] in Blood by Automated count 4.20 10^6/uL 4. 20 - 5.40 [facility] Hemoglobin [Mass/volume] in Blood 13.1 g/dL 12.0 - 16.0 [facility] Hematocrit [Volume Fraction] of Blood by Automated count 39.9 % 3 7.0 - 47.0 [facility] Erythrocyte mean corpuscular volume [Entitic volume] by Auto mated count 95.0 fL 81.0 - 101 [facility] Erythrocyte mean corpuscular hemoglobin [Entitic mass] by Automated count 31.2 pg 27.0 - 34.0 [facility] Erythrocyte mean corpuscular hemoglobin concentration [Mass/volume] by Automated count 32.8 g/dL 31.0 - 36.0 [facility] Erythrocyte distribution width [Ratio] by Automated count 13.6 % 11.5 - 14.5 [facility] Platelets [#/volume] in Blood by Automated count 180 10^3/uL 150 - 45 0 [facility] Platelet mean volume [Entitic volume] in Blood by Automated count 10.0 fL 7.4 - 10.4 [facility] ID Date Data Source [id number] 04/26/2021 01:23:00 PM EDT [facility] Name Value Range Interpretation Code Description Data Carmen rce(s) Supporting Document(s) CULTURE URINE [facility] spital _CULTURE URINE_$$[id number]$$499055$$502523$$243847$$861292$$428606$$828336$$514551$$923204$$ 754977$$470148$$951391$$754093$$642603$$940530$$271110$$345929$$430139$$041846$$ 620185$$883895$$977981$$722233$$420729$$595308$$468873$$627713 -- Continued on next page --Patient: YUE Welch Order: [id number] Page 2Culture: CULTURE URINE Status: Final ==== -- Continued on next page --Patient: YUE Welch Order: [id number] Page 2Culture: CULTURE URINE Status: Prelim =====$$[id number]$$[id number] DATE/TIME: 04/26/2021 12:06Culture: CULTURE URINE Status: FinalIsolate 1 Escherichia coli Flag: A . . . . . . .1Greater than 100,000 colony forming units per mLCefazolin <=4 ug/mLCefazolin with an BRAXTON <=16 predicts susceptibility to the oral agentscefaclor, cefdinir, cefpodoxime, cefprozil, cefuroxime, cephalexin,and loracarbef when used for therapy of uncomplicated urinary tractinfections due to E. coli, Klebsiella pneumoniae, and Proteusmirabilis. Previous result entered on 04/24/2021 06:12 ET Escherichia coliUrine Culture,Comprehensive: H9Dczcoxayfct coli Flag: APatient: YUE WILSON Yuri Order: [id number] Page 3Culture: CULTURE URINE Status: Final ISOLATE 1 Escherichia coli Isolate 1Antibiotic BRAXTON IntUnits ug/mL ----Amoxicillin/Clavulanic Acid S S . . . . . .20-8Ampicillin S S . . . . . .28-1Cefepime S S . . . . . .6644-9Ceftriaxone S S . . . . . .141-2Cefuroxime S S . . . . . .145-3Ciprofloxacin S S . . . . . .185-9Ertapenem S S . . . . . .19818-3Ireevzgner S S . . . . . .267-5Imipenem S S . . . . . .279- 0Levofloxacin S S . . . . . .90956-8Mvfaildar S S . . . . . .6652-2Nitrofurantoin S S . . . . . .363-2Piperacillin/Tazobactam S S . . . . . .412-7Tetracycline S S . . . . . .496-0Tobramycin S S . . . . . .508-2Trimethoprim/Sulfa S S . . . . . .516-5P1 Test performed by: [facility] KAREN #: [id number] [address] [place] [address] [phone] [facility] [address]Iqtfbbz Director : Reyes José MD NPI #:Cathead Operator : 04/24/21.2011.XMT.SENT REF 04/26/21.1324.XMT.SENT REF 04/26/21.132Benjy. .to [facility] via fax ID Date Data Source [id number] 03/02/2021 01:55:00 PM EDT [facility] Name Value Range Interpretation Code Description Data Carmen rce(s) Supporting Document(s) CULTURE URINE [facility] spital _CULTURE URINE_$$[id number]$$566149$$641763$$137857$$377990$$846580$$681677$$864684$$187204$$ 133873$$437201$$002210$$891840$$434549$$915260$$209535$$056105$$567847$$116276$$ 521120$$936374$$789258$$150721$$022659$$273418$$918232$$556663 -- Continued on next page --Patient: YUE WILSON A Order: [id number] Page 2Culture: CULTURE URINE Status: Final ==== -- Continued on next page --Patient: YUE WILSON A Order: [id number] Page 2Culture: CULTURE URINE Status: Prelim =====$$[id number]$$[id number] DATE/TIME: 03/02/2021 08:07Culture: CULTURE URINE Status: FinalIsolate 1 Escherichia coli Flag: A . . . . . . .110,000-25,000 colony forming units per mLCefazolin <=4 ug/mLCefazolin with an BRAXTON <=16 predicts susceptibility to the oral agentscefaclor, cefdinir, cefpodoxime, cefprozil, cefuroxime, cephalexin,and loracarbef when used for therapy of uncomplicated urinary tractinfections due to E. coli, Klebsiella pneumoniae, and Proteusmirabilis. Previous result entered on 02/28/2021 07:31 ET Escherichia coliUrine Culture,Comprehensive: C8Faammwshgma coli Flag: APatient: YUE Welch Order: [id number] Page 3Culture: CULTURE URINE Status: Final ISOLATE 1 Escherichia coli Isolate 1Antibiotic BRAXTON IntUnits ug/mL ----Amoxicillin/Clavulanic Acid S S . . . . . .20-8Ampicillin R R . . . . . .28-1Cefepime S S . . . . . .6644-9Ceftriaxone S S . . . . . .141-2Cefuroxime S S . . . . . .145-3Ciprofloxacin S S . . . . . .185-9Ertapenem S S . . . . . .42991-0Bnoadgpgmg S S . . . . . .267-5Imipenem S S . . . . . .279- 0Levofloxacin S S . . . . . .25666-0Lnpznoxzj S S . . . . . .6652-2Nitrofurantoin S S . . . . . .363-2Piperacillin/Tazobactam S S . . . . . .412-7Tetracycline S S . . . . . .496-0Tobramycin S S . . . . . .508-2Trimethoprim/Sulfa S S . . . . . .516-5P1 Test performed by: [facility] #: [id number] [address] [place] [address] [phone] [facility] [address]Ehvlccf Director : Reyes José MD NPI #:Cathead Operator : 03/01/21.0609.XMT.SENT REF 03/02/21.1355.XMT.SENT REF 03/02/21.1355. .to [facility] via fax ID Date Data Source [id number] 01/22/2021 05:00:00 PM EST [facility] Name Value Range Interpretation Code Description Data Carmen rce(s) Supporting Document(s) SOURCE: Genital [facility] Chlamydia trachomatis rRNA [Presence] in Unspecified specimen by Probe and target amplification method Negative Negative [facility] Neisseria gonorrhoeae rRNA [Presence] in Unspecified specimen by Probe and target amplification method Negative Negative [facility] Trichomonas vaginalis DNA [Presence] in Unspecified specimen by Probe and target amplification method Negative Negative [facility] ID Date Data Source [id number] 12/27/2020 06:50:00 AM EST [facility] Name Value Range Interpretation Code Description Data Carmen rce(s) Supporting Document(s) SARS-CoV-2, PRAVIN Not Detected Not Detected [facility] This nucleic acid amplification test was developed and its performancecharacteristics determined by [employer]. Nucleic acidamplification tests include RT-PCR and TMA. This test has not beenFDA cleared or approved. This test has been authorized by FDA underan Emergency Use Authorization (EUA). This test is only authorizedfor the duration of time the declaration that circumstances existjustifying the authorization of the emergency use of in vitrodiagnostic tests for detection of SARS-CoV-2 virus and/or diagnosisof COVID-19 infection under section 564(b)(1) of the Act, 21 U.S.C.360bbb-3(b) (1), unless the authorization is terminated or revokedsooner.When diagnostic testing is negative, the possibility of a falsenegative result should be considered in the context of a patient'srecent exposures and the presence of clinical signs and symptomsconsistent with COVID- 19. An individual without symptoms of COVID-19and who is not shedding SARS-CoV-2 virus would expect to have anegative (not detected) result in this assay. ID Date Data Source [id number] 12/03/2020 02:12:00 PM EST [facility] Name Value Range Interpretation Code Description Data Carmen rce(s) Supporting Document(s) COVID-19 PRAVIN (SARS-CoV-2) NOT DETECTED NOT DETECTED [facility] A Not Detected (negative) test result fo r this testmeans that SARS- CoV-2 RNA was not present in the specimenabove the limit of detection. A negative result does notrule out the possibility of COVID-19 and should not beused as the sole basis for treatment or patient managementdecisions. If COVID-19 is still suspected, based onexposure history together with other clinical findings,re- testing should be considered in [place] [facility] health authorities. Laboratory test results shouldalways be considered in the context of clinicalobservations and epidemiological data in making a finaldiagnosis and patient management decisions.Please review the "Fact Sheets" and FDA authorizedlabeling available for health care providers andpatients using the following websites:https://www.[employer].com/home/Covid-19/HCP/NAAT/fact-nttnh7jjkos://www.[employer].com/home /Covid-19/Patients/NAAT/fact-uiety4Wmab test has been authorized by the FDA under anEmergency Use Authorization (EUA) for use by authorizedlaboratories.Due to the current public health emergency, [employer] is receiving a high volume of samples froma wide variety of swabs and media for COVID-19 testing.In order to serve patients during this public healthcrisis, samples from appropriate clinical sources arebeing tested. Negative test results derived fromspecimens received in non-commercially manufacturedviral collection and transport media, or in media andsample collection kits not yet authorized by FDA forCOVID-19 testing should be cautiously evaluated and thepatient potentially subjected to extra precautions suchas additional clinical monitoring, including collectionof an additional specimen.Methodology: Nucleic Acid Amplification Test (NAAT)includes RT-PCR or TMAAdditional information about COVID-19 can be f oundat the [employer] website:www.[employer]/Covid19.THIS TEST WAS PERFORMED AT:[facility] [id number] MERATI,MD ID Date Data Source [id number] 11/25/2020 01:33:00 PM EST [facility] Name Value Range Interpretation Code Description Data Carmen rce(s) Supporting Document(s) COVID-19 PRAVIN (SARS-CoV-2) NOT DETECTED NOT DETECTED [facility] A Not Detected (negative) test result fo r this testmeans that SARS- CoV-2 RNA was not present in the specimenabove the limit of detection. A negative result does notrule out the possibility of COVID-19 and should not beused as the sole basis for treatment or patient managementdecisions. If COVID-19 is still suspected, based onexposure history together with other clinical findings,re- testing should be considered in consultation [place] [facility] health authorities. Laboratory test results shouldalways be considered in the context of clinicalobservations and epidemiological data in making a finaldiagnosis and patient management decisions.Please review the "Fact Sheets" and FDA authorizedlabeling available for health care providers andpatients using the following websites:https://www.[employer].com/home/Covid-19/HCP/NAAT/fact-odpve5tvybm://www.[employer]/home /Covid-19/Patients/NAAT/fact-ygvem4Nmpq test has been authorized by the FDA under anEmergency Use Authorization (EUA) for use by authorizedlaboratories.Due to the current public health emergency, [employer] is receiving a high volume of samples froma wide variety of swabs and media for COVID-19 testing.In order to serve patients during this public healthcrisis, samples from appropriate clinical sources arebeing tested. Negative test results derived fromspecimens received in non-commercially manufacturedviral collection and transport media, or in media andsample collection kits not yet authorized by FDA forCOVID-19 testing should be cautiously evaluated and thepatient potentially subjected to extra precautions suchas additional clinical monitoring, including collectionof an additional specimen.Methodology: Nucleic Acid Amplification Test (NAAT)includes RT-PCR or TMAAdditional information about COVID-19 can be f oundat the [employer] website:www.[employer]/Covid19.THIS TEST WAS PERFORMED AT:[facility] [address]EYHJEM MERATI,MD ID Date Data Source [id number] 11/23/2020 04:40:00 PM EST [facility] Name Value Range Interpretation Code Description Data Carmen rce(s) Supporting Document(s) COVID-19 PRAVIN (SARS-CoV-2) NOT DETECTED NOT DETECTED [facility] A Not Detected (negative) test result fo r this testmeans that SARS- CoV-2 RNA was not present in the specimenabove the limit of detection. A negative result does notrule out the possibility of COVID-19 and should not beused as the sole basis for treatment or patient managementdecisions. If COVID-19 is still suspected, based onexposure history together with other clinical findings,re- testing should be considered in consultation [place] [facility] health authorities. Laboratory test results shouldalways be considered in the context of clinicalobservations and epidemiological data in making a finaldiagnosis and patient management decisions.Please review the "Fact Sheets" and FDA authorizedlabeling available for health care providers andpatients using the following websites:https://www.[employer] Payment.com/home/Covid-19/HCP/NAAT/fact-[email or web address]://www.[employer]/home /Covid-19/Patients/NAAT/fact-nxity2Jshd test has been authorized by the FDA under anEmergency Use Authorization (EUA) for use by authorizedlaboratories.Due to the current public health emergency, [facility] is receiving a high volume of samples froma wide variety of swabs and media for COVID-19 testing.In order to serve patients during this public healthcrisis, samples from appropriate clinical sources arebeing tested. Negative test results derived fromspecimens received in non-commercially manufacturedviral collection and transport media, or in media andsample collection kits not yet authorized by FDA forCOVID-19 testing should be cautiously evaluated and thepatient potentially subjected to extra precautions suchas additional clinical monitoring, including collectionof an additional specimen.Methodology: Nucleic Acid Amplification Test (NAAT)includes RT-PCR or TMAAdditional information about COVID-19 can be f oundat the [employer] website:[email or web address].[facility].[place]/Covid19.THIS TEST WAS PERFORMED AT:[facility] [id number] MERATI,MD ID Date Data Source [id number] 11/10/2020 11:24:00 AM [facility] Normal result is "[employer]Now Covid-19 Ag n egative"[employer] Covid-19 Ag is a rapid lateral flowimmunochromatographic immunoassayThis test detects both viable(live) and non-viable, SARS-COVand SARS-COV-2.Positive test results do not differentiate between SARS-COVand [id number] results , from patients with symptom onset beyondseven days, should be treated as presumptive andconfirmation with a molecular assay, if necessary, forpatient managementIf the differentiation of specific SARS viruses and strainsis needed, additional testing, in consultation with stateand local public health departments, is required.SARS-CoV-2 Ag Resp Ql IA.rapid Name Value Range Interpretation Code Description Data Carmen rce(s) Supporting Document(s) ID Date Data Source [id number] 11/09/2020 01:32:00 PM [facility] Name Value Range Interpretation Code Description Data Carmen rce(s) Supporting Document(s) COVID-19 PRAVIN (SARS-CoV-2) NOT DETECTED NOT DETECTED [facility] A Not Detected (negative) test result fo r this testmeans that SARS- CoV-2 RNA was not present in the specimenabove the limit of detection. A negative result does notrule out the possibility of COVID-19 and should not beused as the sole basis for treatment or patient managementdecisions. If COVID-19 is still suspected, based onexposure history together with other clinical findings,re- testing should be considered [place] [facility] [place] health authorities. Laboratory test results shouldalways be considered in the context of clinicalobservations and epidemiological data in making a finaldiagnosis and patient management decisions.Please review the "Fact Sheets" and FDA authorizedlabeling available for health care providers andpatients using the following websites:https://www.[employer].[place]/home/Covid-19/HCP/NAAT/fact-qlxoe5dewdw://www.[employer]/home /Covid-19/Patients/NAAT/fact-kmlpr9Wjkc test has been authorized by the FDA under anEmergency Use Authorization (EUA) for use by authorizedlaboratories.Due to the current public health emergency, [facility] is receiving a high volume of samples froma wide variety of swabs and media for COVID-19 testing.In order to serve patients during this public healthcrisis, samples from appropriate clinical sources arebeing tested. Negative test results derived fromspecimens received in non-commercially manufacturedviral collection and transport media, or in media andsample collection kits not yet authorized by FDA forCOVID-19 testing should be cautiously evaluated and thepatient potentially subjected to extra precautions suchas additional clinical monitoring, including collectionof an additional specimen.Methodology: Nucleic Acid Amplification Test (NAAT)includes RT-PCR or TMAAdditional information about COVID-19 can be f oundat the [employer] website:www.[facility].[place]/Covid19.THIS TEST WAS PERFORMED AT:[facility] [id number] MERATI,MD ID Date Data Source [id number] 11/03/2020 02:30:00 PM [facility] Name Value Range Interpretation Code Description Data Carmen rce(s) Supporting Document(s) CBC NO DIFF [facility] COMPLETE BLOOD COUNT Leukocytes [#/volume] in Blood by Automated count 5.0 10^3/uL 4.2 - 1 1.0 [facility] Erythrocytes [#/volume] in Blood by Automated count 4.31 10^6/uL 4. 20 - 5.40 [facility] Hemoglobin [Mass/volume] in Blood 13.4 g/dL 12.0 - 16.0 [facility] Hematocrit [Volume Fraction] of Blood by Automated count 39.5 % 3 7.0 - 47.0 [facility] Erythrocyte mean corpuscular volume [Entitic volume] by Auto mated count 91.6 fL 81.0 - 101 [facility] Erythrocyte mean corpuscular hemoglobin [Entitic mass] by Automated count 31.1 pg 27.0 - 34.0 [facility] Erythrocyte mean corpuscular hemoglobin concentration [Mass/volume] by Automated count 33.9 g/dL 31.0 - 36.0 [facility] Erythrocyte distribution width [Ratio] by Automated count 12.9 % 11.5 - 14.5 [facility] Platelets [#/volume] in Blood by Automated count 217 10^3/uL 150 - 45 0 [facility] Platelet mean volume [Entitic volume] in Blood by Automated count 10.4 fL 7.4 - 10.4 [facility] ID Date Data Source [id number] 10/31/2020 11:47:00 PM EST [facility] Name Value Range Interpretation Code Description Data Carmen e(s) Supporting Document(s) COVID-19 PRAVIN (SARS-CoV-2) NOT DETECTED NOT DETECTED [facility] A Not Detected (negative) test result fo r thistest means that SARS-CoV-2 RNA was not presentin the specimen above the limit of detection. Anegative result does not rule out the possibilityof COVID-19 and should not be used as the solebasis for treatment or patient managementdecisions. If COVID-19 is still suspected, basedon exposure history together with other clinicalfindings, re-testing should be considered inconsultation with public health authorities.Laboratory test results should always be consideredin the context of clinical observations andepidemiological data in making a final diagnosisand patient management decisions.REFERENCE RANGE: NOT DETECTEDThis patient specimen was tested using an FDA EUA poolingmethod.Negative results from pooled testing should not betreated as definitive. If the patient's clinicalsigns and symptoms are inconsistent with a negativeresult or results are necessary for patient management,then the patient should be considered for individualtesting. Specimens with low viral loads may not bedetected in sample pools due to the decreased sensitivityof pooled testing.Please review the "Fact Sheets" and FDA authorizedlabeling available for health care providers andpatients using the following websites:https://www.[employer].[place]/home/Covid-19/HCP/QuestIVD/fact-sheet. htmlhttps://www.[employer]/home/Covid-19/Patients/QuestIVD/fact-sheet. htmlThis test has been authorized by the FDA under anEmergency Use Authorization (EUA) for use by authorizedlaboratories.Due to the current public health emergency, [facility] is receiving a high volume of samples froma wide variety of swabs and media for COVID-19 testing.In order to serve patients during this public healthcrisis, samples from appropriate clinical sources arebeing tested. Negative test results derived fromspecimens received in non- commercially manufacturedviral collection and transport media, or in media andsample collection kits not yet authorized by FDA forCOVID-19 testing should be cautiously evaluated and thepatient potentially subjected to extra precautions suchas additional clinical monitoring, including collectionof an additional specimen.Methodology: Nucleic Acid Amplification Test (NAAT)includes RT-PCR or TMAAdditional information about COVID-19 can be foundat the [employer] website:www.[facility].[place]/Covid19.THIS TEST WAS PERFORMED AT:[facility] [id number] MERATI,MD ID Date Data Source [id number] 10/25/2020 06:07:00 PM EST [facility] Name Value Range Interpretation Code Description Data Carmen rce(s) Supporting Document(s) COVID-19 PRAVIN (SARS-CoV-2) NOT DETECTED NOT DETECTED [facility] A Not Detected (negative) test result fo r this testmeans that SARS- CoV-2 RNA was not present in the specimenabove the limit of detection. A negative result does notrule out the possibility of COVID-19 and should not beused as the sole basis for treatment or patient managementdecisions. If COVID-19 is still suspected, based onexposure history together with other clinical findings,re- testing should be considered in consultation [place] [facility] health authorities. Laboratory test results shouldalways be considered in the context of clinicalobservations and epidemiological data in making a finaldiagnosis and patient management decisions.Please review the "Fact Sheets" and FDA authorizedlabeling available for health care providers andpatients using the following websites:https://www.[employer].com/home/Covid-19/HCP/QuestIVD/fact-sheet.htmlhttps://www.[employer]. [place]/home/Covid-19/Patients/QuestIVD/fact-sheet.htmlThis test has been authorized by the FDA under anEmergency Use Authorization (EUA) for use by authorizedlaboratories.Due to the current public health emergency, [facility] is receiving a high volume of samples froma wide variety of swabs and media for COVID-19 testing.In order to serve patients during this public healthcrisis, samples from appropriate clinical sources arebeing tested. Negative test results derived fromspecimens received in non-commercially manufa cturedviral collection and transport media, or in media andsample collection kits not yet authorized by FDA forCOVID-19 testing should be cautiously evaluated and thepatient potentially subjected to extra precautions suchas additional clinical monitoring, including collectionof an additional specimen.Methodology: Nucleic Acid Amplification Test (NAAT)includes RT-PCR or TMAAdditional information about COVID-19 can be foundat the [employer] website:www.[facility].[place]/Covid19.THIS TEST WAS PERFORMED AT:[facility] [id number] MERATI,MD ID Date Data Source [id number] 09/25/2020 11:24:00 AM [facility] Method of Collection:: Voided Name Value Range Interpretation Code Description Data Carmen rce(s) Supporting Document(s) Hemoglobin [Moles/volume] in Blood 13.1 g/dL 10.7-15.4 N [facility] Hematocrit [Volume Fraction] of Blood by Automated count 40.2 % 3 7-47 N [facility] ID Date Data Source [id number] 09/25/2020 02:37:00 PM [facility] Method of Collection:: Voided Name Value Range Interpretation Code Description Data Carmen rce(s) Supporting Document(s) Glucose [Mass/volume] in Serum or Plasma 88 mg/dL 74-106 N [facility] ID Date Data Source [id number] 09/28/2020 01:42:00 PM [facility] Method of Collection:: Voided Name Value Range Interpretation Code Description Data Carmen rce(s) Supporting Document(s) Varicella zoster virus IgG Ab [Units/volume] in Serum by Immunoassay 1445.00 index [facility] l Index Interpretatio n --------- <135.00 Negative - Antibody not detected 135.00 - 164.99 Equivocal > or = 165.00 Positive - Antibody detected A positive result indicates that the patient has antibody to VZV but does not differentiate between an active or past infection. The clinical d iagnosis must be interpreted in conjunction with the clinical signs and symptoms of the patient. This assay reliably measures immunity due to previous infection but may not be sensitive enough to detect antibodies induced by vaccination. Thus, a negative result in a vaccinated individual does not necessarily indicate susceptibility to VZV infection. A more sensitive test for vaccination-induced immunity is Varicella Zoster Virus Antibody Immunity Screen, ACIF.THIS TEST WAS PERFORMED AT:[facility] [id number] MERATI,MD ID Date Data Source [id number] 09/25/2020 11:34:00 AM [facility] Method of Collection:: Voided Name Value Range Interpretation Code Description Data Carmen rce(s) Supporting Document(s) Color of Urine [facility] Appearance of Urine CLEAR Abnormal (applies to non-nu meric results) [facility] pH of Urine by Test strip 8.5 5-8 [facility] Specific gravity of Urine by Refractometry 1.024 1.005-1.030 [facility] Leukocyte esterase [Presence] in Urine by Test strip NEGAT PEDRO [facility] Nitrite [Presence] in Urine by Test strip NEGATIVE [facility] Protein [Presence] in Urine by Test strip NEGATIVE [facility] Glucose [Mass/volume] in Urine by Automated test strip NEGATIVE NEG ATIVE [facility] Ketones [Presence] in Urine by Test strip NEGATIVE [facility] Urobilinogen [Presence] in Urine 0.2-1 EU/dl [facility] Bilirubin.total [Presence] in Urine by Automated test strip NEGATIVE [facility] Erythrocytes [#/volume] in Urine by Test strip NEGATIVE NEGATIVE [facility] URINE MICROSCOPIC ADDED NO [facility] ID Date Data Source [id number] 09/25/2020 10:45:00 AM EST [facility] Patient Name: STEVE TURNER OB: 1995 Sex: F Pt Unit #: [id number] Location:AMB.EXT Provider: Visit Date/Time: 09/25/20 Primary Insurance: Self Pay Secondary Insurance: ADDENDUM Office Procedure Documentation entered by Manisha Stephen 09/25/20 11:19: Office Meds tuberculin PPD Performing Provider: RACHEL Sargent Administered by: Manisha Stephen on 09/25/20 11:00 Dose [address] Admin Location Lot Number Expiration Date NDC Manufactu rer 0.1 mL intradermal left forearm [id number] 06/16/22 07551-335-09 [employer] <Electronically signed by Manisha Stephen > Addendum Signed By: Date/Time: 09/25/20 1119 Intake Vital Signs 09/25/20 10:50 Current Height 5 ft 3 in Current Weight 120 lb 4 oz Weight Measurement Method Standing Scale BMI 21.2 BP 118/70 Blood Pressure Location Lt brachial Position Sitting Respiration 18 Pulse 73 Pulse Strength Normal Pulse Source Pulse Oximeter Temp 98.8 F Temp Source Oral Pulse Oximetry (%) 99 Oxygen Delivery Method room air Intake Visit Reasons: Occ Med physical Nurse Note: Pt presents today for Occ Med physical. 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 Pt states that she has been well and has no current medical concerns. 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 1. Little interest or pleasure in doing things: not at all 2. Feeling down, depressed, or hopeless: not at all Total score: 0 HIV Testing Offer - ages 13-64 HIV testing Offer: No Requirement for HIV testing offer been met?: Patient reports past refusal SBIRT Annual Questionnaire Are you currently in recovery for alcohol or substance use?: No How many times in the past year have you had 4 or more drinks in a day?: None How many times in the past year have you used a recreational drug or used a prescription medication for nonmedical reasons?: None Do you need a note to return Do you need a note to return to daycare/school/sports/work: No Coronavirus Screening Screening Have you traveled outside of [facility] or [facility] in the last 14 days.: No Has patient experienced coronavirus symptoms: No [facility] Surgical History History of placement of ear tubes Hx of section Status post right foot surgery Social History Does the Patient have a Healthcare Proxy: No Does Patient have a DNR?: No Does Patient have a Living Will?: No household members: family marital status: Single lives independently: Yes number of children: 2 service: No fci: No current occupational exposures/hazards: No pets and animals: No Hx Recent Travel (where): No do you think of yourself as: straight/heterosexual current gender identity: female Smoking Status: Never smoker alcohol intake: never substance use type: does not use Sickle cell Sickle Cell Screening:: Not indicated HPI Additional HPI HPI Details: Here for employment history and physical. Paperwork reviewed which included check list of review of systems. 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 She has history ofanemia. Review of Systems Const All systems reviewed are unremarkable except as noted in HPI and below Exam Const General: cooperative, healthy appearing, no acute distress and well developed Orientation: alert, awake and oriented x3 HENMT Head: normocephalic Ears: hearing grossly normal bilaterally and TM's normal bilaterally General nose exam: external nose normal Face and sinus: normal facial exam Mouth: oral mucosae normal Teeth and gingiva: dentition normal Throat: posterior oropharynx normal Eyes General: appearance normal, both eyes and all related structures Alignment and Position: alignment normal Eyelids: eyelids normal Conjunctivae: conjunctivae normal Sclera: sclerae normal Pupils: PERRL EOM: EOM intact bilaterally Neck Neck: normal visual inspection and full ROM Carotids: normal carotid upstroke Lymphatic: no lymphadenopathy noted Chest Chest: normal inspection of the chest Resp Effort Inspection: normal respiratory effort Auscultation: clear to auscultation bilaterally Other: respiratory rate normal range Cardio Rate: regular rate and other (heart rate in normal range) Rhythm: regular rhythm Heart Sounds: S1 normal and S2 normal GI Inspection: Yes normal to inspection Palpation: soft, no guarding, no masses and nontender Auscultation: normal bowel sounds General: deferred Other: exam deferred Musc Cervical Spine: normal cervical lordosis and cervical ROM normal Thoracic/Lumbar Spine: thoracic and lumbar spine normal to inspection and thoraco-lumbar ROM normal Other: walks in with a normal gait Skin Lesions: no lesions Rashes: no rashes Hair: normal Nails: normal Other: warm and dry, color and texture normal Neuro General: gait normal, tone normal, moves all extremities, normal light touch, pain and propioceptionand no focal motor deficits Cranial Nerves: PERRL, EOM intact bilaterally, hearing normal and other (cranial nerves III-XII grossly intact) Cognition: normal cognition Speech: speech normal Gait: normal gait Motor: muscle tone normal throughout, strength 5/5 throughout and no movement abnormalities noted Sensory Exam: no sensory deficits noted Pupils: Normal pupillary reactivity/response: bilateral Extrem General: normal to inspection, full ROM and normal exam except as noted Psych Appearance: grossly normal and well kempt Speech and Movement: speech and movement normal Mood: congruent mood Affect: normal affect Attitude: cooperative Thought Process: normal Thought Content: normal 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 Forms signed. PPD placed. labs ordered Orders Other Medications: New: tuberculin PPD 0.1 mL intradermal ONCE 0.1 mL 0RF Z02.1 Other Orders: Orders: INJ - TB intradermal test Today Z02.1 <Electronically signed by Kristine Huitron ASPHALT MIXING MACHINE OPERATOR> 09/25/20 1112 Name Value Range Interpretation Code Description Data Carmen rce(s) Supporting Document(s) Procedure Social History Code Duration Value Status Description Data Source(s ) Smoking 06/07/2021 12:00:00 AM EDT Patient has never smoked co mpleted Patient has never smoked [facility] ([facility], [facility]) 09/25/2020 10:59:21 AM EST Never smoker completed Never [facility] Smoking 09/25/2020 10:59:00 AM EST Never smoker completed Never [facility] Vital Signs ID Date Data Source UNK Name Value Range Interpretation Code Description Data Source(s) Body mass index (BMI) [Ratio] 18.8 kg/m2 18.8 k g/m2 [facility] ([facility], [facility]) Systolic blood pressure 123 mm[Hg] 123 mm[Hg] [facility] ([facility], [facility]) Diastolic blood pressure 86 mm[Hg] 86 mm[Hg] [facility] ([facility], [facility]) Heart rate 86 /min 86 /min [facility] ([facility], [facility]) Respiratory rate 16 /min 16 /min [facility] ( [facility]) Oxygen saturation in Arterial blood by Pulse oximetry 96 % 96 % [facility] ([facility], [facility]) Body temperature 98.9 [degF] 98.9 [degF] [facility] ([facility], [facility]) Body weight 106.00 [lb_av] 106.00 [lb_av] [facility] ([facility], [facility]) Body height 63 [in_i] 63 [in_i] [facility] ([facility], [facility]) 5'3"
[2021-10-30] MEDS ORDERED: KETOROLAC 30 MG/ML 1ML VIAL IM ONE (11:35)
[2021-10-30] MEDS ORDERED: LIDOCAINE 5% (LIDODERM) PATCH TD ONE (11:40)
--- OUTSIDE RECORDS SUMMARY | 2021-10-30 12:02 | CCD ---
Author Author [facility] Organization [facility] Address Unknown Phone Unavailable Care Team Providers Care Associate Faculty Name Role Phone Canistota-An, Marlena DO Unavailable Unavailable Canistota-An, Marlena DO Unavailable Unavailable Ria-An, Marlena DO Unavailable Unavailable Canistota-An, Marlena DO Unavailable Unavailable Canistota-An, Marlena DO Unavailable Unavailable Ria-An, Marlena DO Unavailable Unavailable Ria-An, Marlena DO Unavailable Unavailable Canistota-An, Marlena DO Unavailable Unavailable Canistota-An, Marlena DO Unavailable Unavailable Rai-An, Marlena DO Unavailable Unavailable Canistota-An, Marlena DO Unavailable Unavailable Ria-An, Marlena DO Unavailable Unavailable Canistota-An, Marlena DO Unavailable Unavailable Ria-An, Marlena DO Unavailable Unavailable Ria-An, Marlena DO Unavailable Unavailable Canistota-An, Marlena DO Unavailable Unavailable Canistota-An, Marlena DO Unavailable Unavailable Canistota-An, Marlena DO Unavailable Unavailable Canistota-An, Marlena DO Unavailable Unavailable Ria-An, Marlena DO Unavailable Unavailable Ria-An, Marlena DO Unavailable Unavailable Ria-An, Marlena DO Unavailable Unavailable Ria-An, Marlena DO Unavailable Unavailable Canistota-An, Marlena DO Unavailable Unavailable Canistota-An, Marlena DO Unavailable Unavailable Canistota-An, Marlena DO Unavailable Unavailable Canistota-An, Marlena DO Unavailable Unavailable Ria-An, Marlena DO Unavailable Unavailable Ria-An, Marlena DO Unavailable Unavailable Ria-An, Marlena DO Unavailable Unavailable Canistota-An, Marlena DO Unavailable Unavailable Canistota-An, Marlena DO Unavailable Unavailable Ria-An, Marlena DO Unavailable Unavailable Ria-An, Marlena DO Unavailable Unavailable Ria-An, Marlena DO Unavailable Unavailable Ria-An, Marlena DO Unavailable Unavailable Ria-An, Marlena DO Unavailable Unavailable Canistota-An, Marlena DO Unavailable Unavailable Ria-An, Marlena DO Unavailable Unavailable Canistota-An, Marlena DO Unavailable Unavailable Ria-An, Marlena DO Unavailable Unavailable Ria-An, Marlena DO Unavailable Unavailable Canistota-An, Marlena DO Unavailable Unavailable Ria-An, Marlena DO Unavailable Unavailable [place]istota-An, Marlena DO Unavailable Unavailable Ria-An, Marlena DO Unavailable Unavailable Ria-An, Marlena DO Unavailable Unavailable Ria-An, Marlena DO Unavailable Unavailable Canistota-An, Marlena DO Unavailable Unavailable Ria-An, Marlena DO Unavailable Unavailable Canistota-An, Marlena DO Unavailable Unavailable Canistota-An, Marlena DO Unavailable Unavailable [place]istota-An, Marlena DO Unavailable Unavailable Ria-An, Marlena DO Unavailable Unavailable Canistota-An, Marlena DO Unavailable Unavailable Canistota-An, Marlena DO Unavailable Unavailable Canistota-An, Marlena DO Unavailable Unavailable [place]istota-An, Marlena DO Unavailable Unavailable Ria-An, Marlena DO Unavailable Unavailable Ria-An, Marlena DO Unavailable Unavailable [place]istota-An, Marlena DO Unavailable Unavailable Ria-An, Marlena DO Unavailable Unavailable [place]istota-An, Marlena DO Unavailable Unavailable Ria-An, Marlena DO Unavailable Unavailable [place]istota-An, Marlena DO Unavailable Unavailable Ria-An, Marlena DO Unavailable Unavailable Ria-An, Marlena DO Unavailable Unavailable Canistota-An, Marlena DO Unavailable Unavailable Canistota-An, Marlena DO Unavailable Unavailable Doctor Provided, Family PHYS No Family Unavailable U navailable RAMSEY, RILEY KAYLEEN HOME VISITOR Unavailable Unavailable RAMSEY, RILEY KAYLEEN HOME VISITOR Unavailable Unavailable RAMSEY, RILEY KAYLEEN HOME VISITOR Unavailable Unavailable RAMSEY, RILEY KAYLEEN HOME VISITOR Unavailable Unavailable RAMSEY, RILEY KAYLEEN HOME VISITOR Unavailable Unavailable RAMSEY, RILEY KAYLEEN HOME VISITOR Unavailable Unavailable RAMSEY, RILEY KAYLEEN HOME VISITOR Unavailable Unavailable RAMSEY, RILEY KAYLEEN HOME VISITOR Unavailable Unavailable RAMSEY, RILEY KAYLEEN HOME VISITOR Unavailable Unavailable RAMSEY, RILEY KAYLEEN HOME VISITOR Unavailable Unavailable RAMSEY, RILEY KAYLEEN HOME VISITOR Unavailable Unavailable RAMSEY, RILEY KAYLEEN HOME VISITOR Unavailable Unavailable RAMSEY, RILEY KAYLEEN HOME VISITOR Unavailable Unavailable RAMSEY, RILEY KAYLEEN HOME VISITOR Unavailable Unavailable RAMSEY, RILEY KAYLEEN HOME VISITOR Unavailable Unavailable RAMSEY, RILEY KAYLEEN HOME VISITOR Unavailable Unavailable RAMSEY, RILEY KAYLEEN HOME VISITOR Unavailable Unavailable RAMSEY, RILEY KAYLEEN HOME VISITOR Unavailable Unavailable RAMSEY, RILEY KAYLEEN HOME VISITOR Unavailable Unavailable RAMSEY, RILEY KAYLEEN HOME VISITOR Unavailable Unavailable RAMSEY, RILEY KAYLEEN HOME VISITOR Unavailable Unavailable RAMSEY, RILEY KAYLEEN HOME VISITOR Unavailable Unavailable RAMSEY, RILEY KAYLEEN HOME VISITOR Unavailable Unavailable Didier, D Vito HOME VISITOR Unavailable Unavailable Didier, D Vito HOME VISITOR Unavailable Unavailable Didier, D Vito HOME VISITOR Unavailable Unavailable Didier, D Vito HOME VISITOR Unavailable Unavailable Didier, D Vito HOME VISITOR Unavailable Unavailable Didier, D Vito HOME VISITOR Unavailable Unavailable Didier, D Vito HOME VISITOR Unavailable Unavailable Didier, D Vito HOME VISITOR Unavailable Unavailable Didier, D Vito HOME VISITOR Unavailable Unavailable Didier, D Vito HOME VISITOR Unavailable Unavailable Didier, D Vito HOME VISITOR Unavailable Unavailable Didier, D Vito HOME VISITOR Unavailable Unavailable Didier, D Vito HOME VISITOR Unavailable Unavailable Didier, D Vito HOME VISITOR Unavailable Unavailable Didier, D Vito HOME VISITOR Unavailable Unavailable Didier, D Vito HOME VISITOR Unavailable Unavailable Didier, D Vito HOME VISITOR Unavailable Unavailable Didier, D Vito HOME VISITOR Unavailable Unavailable Didier, D Vito HOME VISITOR Unavailable Unavailable Didier, D Vito HOME VISITOR Unavailable Unavailable Didier, D Vito HOME VISITOR Unavailable Unavailable Didier, D Vito HOME VISITOR Unavailable Unavailable Didier, D Vito HOME VISITOR Unavailable Unavailable Didier, D Vito HOME VISITOR Unavailable Unavailable Didier, D Vito HOME VISITOR Unavailable Unavailable Didier, D Vito HOME VISITOR Unavailable Unavailable Didier, D Vito HOME VISITOR Unavailable Unavailable Didier, D Vito HOME VISITOR Unavailable Unavailable Didier, D Vito HOME VISITOR Unavailable Unavailable Didier, D Vito HOME VISITOR Unavailable Unavailable Didier, D Vito HOME VISITOR Unavailable Unavailable Didier, D Vito HOME VISITOR Unavailable Unavailable Didier, D Vito HOME VISITOR Unavailable Unavailable Didier, D Vito HOME VISITOR Unavailable Unavailable Didier, D Vito HOME VISITOR Unavailable Unavailable Didier, D Vito HOME VISITOR Unavailable Unavailable Didier, D Vito HOME VISITOR Unavailable Unavailable Didier, D Vito HOME VISITOR Unavailable Unavailable Didier, D Vito HOME VISITOR Unavailable Unavailable Didier, D Vito HOME VISITOR Unavailable Unavailable Didier, D Vito HOME VISITOR Unavailable Unavailable Huitron, L Kristine HOME VISITOR Unavailable Unavailable Huitron, L Kristine HOME VISITOR Unavailable Unavailable Huitron, L Kristine HOME VISITOR Unavailable Unavailable Huitron, L Kristine HOME VISITOR Unavailable Unavailable Huitron, L Kristine HOME VISITOR Unavailable Unavailable Huitron, L Kristine HOME VISITOR Unavailable Unavailable Huitron, L Kristine HOME VISITOR Unavailable Unavailable Huitron, L Kristine HOME VISITOR Unavailable Unavailable Huitron, L Kristine HOME VISITOR Unavailable Unavailable Huitron, L Kristine HOME VISITOR Unavailable Unavailable Huitron, L Kristine HOME VISITOR Unavailable Unavailable Huitron, L Kristine HOME VISITOR Unavailable Unavailable Huitron, L Kristine HOME VISITOR Unavailable Unavailable Huitron, L Kristine HOME VISITOR Unavailable Unavailable Huitron, L Kristine HOME VISITOR Unavailable Unavailable Huitron, L Kristine HOME VISITOR Unavailable Unavailable Huitron, L Kristine HOME VISITOR Unavailable Unavailable Huitron, L Kristine HOME VISITOR Unavailable Unavailable Huitron, L Kristine HOME VISITOR Unavailable Unavailable Huitron, L Kristine HOME VISITOR Unavailable Unavailable Huitron, L Kristine HOME VISITOR Unavailable Unavailable Huitron, L Kristine HOME VISITOR Unavailable Unavailable Huitron, L Kristine HOME VISITOR Unavailable Unavailable Huitron, L Kristine HOME VISITOR Unavailable Unavailable Huitron, L Kristine HOME VISITOR Unavailable Unavailable Huitron, L Kristine HOME VISITOR Unavailable Unavailable Huitron, L Kristine HOME VISITOR Unavailable Unavailable Huitron, L Kristine HOME VISITOR Unavailable Unavailable Huitron, L Kristine HOME VISITOR Unavailable Unavailable Huitron, L Kristine HOME VISITOR Unavailable Unavailable Huitron, L Kristine HOME VISITOR Unavailable Unavailable Huitron, L Kristine HOME VISITOR Unavailable Unavailable Huitron, L Kristine HOME VISITOR Unavailable Unavailable Huitron, L Kristine HOME VISITOR Unavailable Unavailable Huitron, L Kristine HOME VISITOR Unavailable Unavailable Huitron, L Kristine HOME VISITOR Unavailable Unavailable Huitron, L Kristine HOME VISITOR Unavailable Unavailable Huitron, L Kristine HOME VISITOR Unavailable Unavailable Huitron, L Kristine HOME VISITOR Unavailable Unavailable Huitron, L Kristine HOME VISITOR Unavailable Unavailable Huitron, L Kristine HOME VISITOR Unavailable Unavailable Huitron, L Kristine HOME VISITOR Unavailable Unavailable Moshe Ramirez MD Unavailable Unavailable [...] Medicine Occupation Unavailable Unavailable BUMBANAC, A STAR HOME VISITOR Unavailable Unavailable BUMBANAC, A STAR HOME VISITOR Unavailable Unavailable BUMBANAC, A STAR HOME VISITOR Unavailable Unavailable BUMBANAC, A STAR HOME VISITOR Unavailable Unavailable BUMBANAC, A STAR HOME VISITOR Unavailable Unavailable BUMBANAC, A STAR HOME VISITOR Unavailable Unavailable BUMBANAC, A STAR HOME VISITOR Unavailable Unavailable BUMBANAC, A STAR HOME VISITOR Unavailable Unavailable BUMBANAC, A STAR HOME VISITOR Unavailable Unavailable BUMBANAC, A STAR HOME VISITOR Unavailable Unavailable BUMBANAC, A STAR HOME VISITOR Unavailable Unavailable BUMBANAC, A STAR HOME VISITOR Unavailable Unavailable BUMBANAC, A STAR HOME VISITOR Unavailable Unavailable BUMBANAC, A STAR HOME VISITOR Unavailable Unavailable BUMBANAC, A STAR HOME VISITOR Unavailable Unavailable BUMBANAC, A STAR HOME VISITOR Unavailable Unavailable BUMBANAC, A STAR HOME VISITOR Unavailable Unavailable BUMBANAC, A STAR HOME VISITOR Unavailable Unavailable BUMBANAC, A STAR HOME VISITOR Unavailable Unavailable BUMBANAC, A STAR HOME VISITOR Unavailable Unavailable BUMBANAC, A STAR HOME VISITOR Unavailable Unavailable BUMBANAC, A STAR HOME VISITOR Unavailable Unavailable BUMBANAC, A STAR HOME VISITOR Unavailable Unavailable BUMBANAC, A STAR HOME VISITOR Unavailable Unavailable BUMBANAC, A STAR HOME VISITOR Unavailable Unavailable BUMBANAC, A STAR HOME VISITOR Unavailable Unavailable BUMBANAC, A STAR HOME VISITOR Unavailable Unavailable BUMBANAC, A STAR HOME VISITOR Unavailable Unavailable BUMBANAC, A STAR HOME VISITOR Unavailable Unavailable BUMBANAC, A STAR HOME VISITOR Unavailable Unavailable BUMBANAC, A STAR HOME VISITOR Unavailable Unavailable Re-disclosure Warning The records that [...] is protected by Article 27-F of the [facility] Public Health law. If you continue you may have access to information: Regarding HIV / AIDS; Provided by facilities licensed or operated by the [facility] Office of Mental Health; or Provided by the [facility] Office for People With Developmental Disabilities. If such information is present, then the following [facility] mandated warning applies: This information has been [...] law may result in a fine or mcfp sentence or both. A general authorization for the release of medical or other information is NOT sufficient authorization for further disc losure. Allergies and Adverse Reactions Type Description Substance Reaction Status Data Source(s ) Propensity to adverse reactions NKDA - NO KNOWN DRUG ALLERGI ES NKDA - NO KNOWN DRUG ALLERGIES [facility] Food allergy milk milk [facility] Family History Family Member Name Family Member Gender Family Member Status Date o f Status Description Data Source(s) Unknown Unknown Problem [facility] ([facility] Unknown Male Problem MEDENT ([facility]) Encounters Encounter Providers Location Date Indications Data Source(s ) Outpatient Attender: KAYLEEN RAMSEY HOME VISITOR 021 03:32:00 PM EDT - 09/13/2021 03:32:00 PM EDT [facility] Outpatient Attender: Lena Amberly MDConsultant: [facility] 07/02/2021 08:36:00 AM EDT - 07/02/2021 08:36:00 AM EDT [facility] Outpatient Attender: Lena Amberly MDConsultant: [facility] 06/25/2021 02:32:00 PM EDT - 06/25/2021 02:32:00 PM EDT [facility] Outpatient Attender: Vito Velásquez NPConsultant: [facility] G [facility] 06/17/2021 07:51:00 AM EDT - 06/17/2021 07:51:00 AM EDT [facility] Outpatient Attender: VANESA Poon 06/07/2021 08:45:00 AM EDT MEDENT ([facility]) Outpatient Attender: Lena Gaming MDConsultant: [facility] 04/26/2021 10:37:00 AM EDT - 04/26/2021 10:37:00 AM EDT [facility] Outpatient Attender: ADRIANNA KRAMER NPConsultant: [facility]IN[facility] GUT H[facility] 04/20/2021 02:30:00 PM EDT - [facility]20[facility] AD[facility]NA KRAMER NPConsultant: [facility] 02/25/2021 09:58:00 AM EDT - 02/25/2021 09:58:00 AM EDT [facility] Outpatient Attender: KAYLEEN RAMSEY NPRefe rrer: KAYLEEN RAMSEY NPConsultant: [facility] T[facility] 01/19/2021 07:42:00 PM EST - 01/19/2021 07:52:00 PM [facility] Outpatient Attender: ADRIANNA KRAMER NP 01/19 03:42:00 PM EST - 01/19/2021 03:42:00 PM [facility] Outpatient Attender: ADRIANNA KRAMER HOME VISITOR 12/25 09:00:00 AM EST - 12/25/2020 09:00:00 AM EST [facility] Outpatient Attender: Marlena Tavarezone DO 2020 07:20:00 AM EST [facility] COVID TESTING [facility] COVID TESTING Outpatient Attender: Marlena Tavarezone DO 2020 06:07:00 AM EST [facility] COVID TESTING [facility] COVID TESTING Outpatient Attender: Marlena Vargas DO 2019 09:38:00 AM EST [facility] COVID TESTING [facility] COVID TESTING Outpatient Attender: Mary Ramirez MD 11/10/2020 09:17:00 AM EST [facility] Outpatient Attender: Marlena Vargas DO 2019 09:32:00 AM EST [facility] COVID TESTING Z20.828 [facility] COVID TESTING Z20.828 Outpatient Attender: Lena Workman 01/04/2020 08:54:00 AM EST - 11/03/2020 08:54:00 AM EST [facility] Outpatient Attender: Marlena Vargas DO 2019 09:20:00 AM EST [facility] COVID19 TESTING [facility] COVID19 TESTING Outpatient Attender: Marlena Vargas DO 2019 01:18:00 PM [facility] COVID TESTING [facility] COVID TESTING Outpatient Attender: KAYLEEN RAMSEY NP 020 10:01:00 AM EST - 10/19/2020 10:01:00 AM [facility] Outpatient Attender: Kristine Huitron NPReferrer: No Family Doctor Provided 09/25/2020 10:42:00 AM EST - 09/25/2020 11:08:[address] 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 [facility] PRE EMPLOY/SPECIAL ORDER JEWELER STUDENT Outpatient Attender: KAYLEEN RAMSEY NP 020 09:01:00 AM EDT - 09/16/2020 09:01:[address] [facility] Outpatient Attender: KAYLEEN RAMSEY HOME VISITOR 09:43:00 AM EDT - 09/08/2020 09:43:00 AM EDT [facility] Outpatient Attender: KAYLEEN RAMSEY HOME VISITOR 020 02:11:00 PM EDT - 08/18/2020 02:11:00 PM EDT [facility] Outpatient Attender: KAYLEEN RAMSEY HOME VISITOR 11:03:00 AM EDT - 07/29/2020 11:03:00 AM EDT [facility] Immunizations Vaccine Date Status Description Data Source(s) COVID-19 VACCINE Moderna 04/06/2021 12:00:00 AM EDT completed [facility] Vaccine Series Complete: YESThis Data wa s Submitted to [facility] Via [employer]. COVID-19 VACCINE Moderna 03/01/2021 12:00:00 AM EDT completed [facility] Vaccine Series Complete: NOThis Data was Submitted to [facility] Via [employer]. Medications Medication Brand Name Start Date Product Form Dose Route Admi nistrative Instructions Pharmacy Instructions Status Indications Reaction Description Data Source(s) NITROFURANTOIN, MACROCRYSTALS 25 MG / Ni trofurantoin, Monohydrate 75 MG Oral Capsule Nitrofurantoin Monohyd/M-Cryst Nitrofurantoin Monohyd/M-Cryst 11/23/2018 12:23:41 PM EST 100 MG completed [facility] Vit No.[id number] ( Vitamin Tablet) 27 mg iron- 800 mcg tablet 11/23/2018 10:56:14 AM EST 1 EACH completed [facility] Insurance Providers Payer name Policy type / Coverage type Policy ID Covered democrat ID Covered democrat's relationship to shaw Policy Shaw Plan Information [facility] U [id number] Se lf [id number] MEDICAID M [id number] Self [id number] [facility] [id number] Self [id number] [place] [id number] [facility] Commercial [id number] Self [id number] UN COMMUNITY PLAN XIX [id number] 18 [id number] MEDICAID [id number] SP [id number] SELF PAY ONLY [facility] [id number] [facility] [id number] MEDICAID -O/P EMERGENCY ROOM [id number] ANSI-Not a Secondary Insurance [id number] ANSI-Not a Secondary Insurance [id number] Commercial [id number] Family Dependent [id number] [facility] HUMANA - O/P [id number] ANSI-Not a Secondary Insurance [id number] [place] O [id number] P [id number] [employer] PPO O [id number] C [id number] [facility] [id number] [facility] [id number] [employer] Commercial [id number] Family Dependent [id number] [employer] [id number] 19 [id number] [facility] [place] -PHYSICIAN [id number] 18 [id number] [employer] -PHYSICIAN [id number] 1 [id number] [facility] AT [place] -I/P [id number] 18 [id number] [employer]-O/P [id number] 19 [id number] [facility] AT [place] [id number] 18 [id number] MEDICAID-O/P [id number] [place]ID [place] [id number] MEDICAID -PHYSICIAN [id number] MEDICAID -I/P [id number] 18 [id number] [facility] AT [facility] [id number] 18 [id number] [facility] Commercial [id number] Family Dependent [id number] [facility] [place] UNAVAILABLE 01 UNAVAILABLE [facility] Commercial [id number] Family Dependent [id number] [facility] [id number] 19 [id number] [facility] CLAIMS [place] -O/P [id number] 01 [id number] [facility] CLAIM[facility] [place] -CLINIC [id number] 01 [id number] [employer] Commercial [id number] Family Dependent RASHID [id number] SP [id number] [facility] COMMUNITY PLAN [facility] [id number] SP [id number] RASHID CARE OF SD XIX MAN -PHYSICIAN [id number] 18 [id number] RASHID CARE OF [place] X[place] MAN -CLINIC [id number] 18 [id number] [facility] COMMUNTY PLAN [id number] Problems, Conditions, and Diagnoses Code Display Name Description Problem Type Effective Dates Data Source(s) [id number] Encounter for routine checking of intrau terine contraceptive device Encounter for routine checking of intrauterine contraceptive device Diagnosis 09/13/2021 03:32:00 PM EDT [facility] N760 Acute vaginitis Acute vaginitis Diagnosis 09/13/2021 03:3 2:00 PM EDT [facility] [id number] Encounter for gynecological examination (general) (routine) without abnormal findings Encounter for gynecological examination (general) (routine) without abnormal findings Diagnosis 09/13/2021 03:32:00 PM EDT [facility] D649 Anemia, unspecified Anemia, unspecified Diagnosis 0 06/25/2021 02:32:00 PM EDT [facility] N390 Urinary tract infection, site not specif ied Urinary tract infection, site not specified Diagnosis 06/17/2021 07:51:00 AM EDT [facility] K08388 CONTACT WITH AND SUSPECTED EXPOSURE TO C OVID-19 CONTACT WITH AND SUSPECTED EXPOSURE TO COVID-19 Diagnosis 12/25/2020 09:00:00 AM EST [facility] [id number] Encounter for insertion of intrauterine contraceptive device Encounter for insertion of intrauterine contraceptive device Diagnosis 09:01:00 AM EDT [facility] Z538 Procedure and treatment not carried out for other reasons Procedure and treatment not carried out for other reasons Diagnosis 09/08/2020 09:43:00 AM EDT [facility] Surgeries/Procedures Procedure Description Date Indications Data Source(s) OFFICE OUTPATIENT VISIT 25 MINUTES 06/07/2021 12:00:00 AM EDT MEDENT ([facility]) Results ID Date Data Source [id number] 10/07/2021 11:15:00 AM EST [facility] Name Value Range Interpretation Code Description Data Carmen rce(s) Supporting Document(s) SARS coronavirus 2 RNA [Presence] in Res piratory specimen by PRAVIN with probe detection NEGATIVE [facility] This lab was ordered by [facility] a nd reported by [facility]. ID Date Data Source [id number] 09/17/2021 07:40:[address] [facility] Name Value Range Interpretation Code Description Data Carmen rce(s) Supporting Document(s) SOURCE: Genital [facility] Chlamydia trachomatis rRNA [Presence] in Unspecified specimen by Probe and target amplification method Negative Negative [facility] Neisseria gonorrhoeae rRNA [Presence] in Unspecified specimen by Probe and target amplification method Negative Negative [facility] ID Date Data Source [id number] 09/16/2021 08:28:[address] [facility] Name Value Range Interpretation Code Description Data Carmen rce(s) Supporting Document(s) SOURCE: Genital [facility] Kimberly sp rRNA [Presence] in Vaginal fluid by DNA probe Negative N egative [facility] Gardnerella vaginalis rRNA [Presence] in Genital specimen by DNA probe Negative Negative [facility] Trichomonas vaginalis rRNA [Presence] in Genital specimen by DNA probe Negative Negative [facility] ID Date Data Source [id number] 07/02/2021 02:48:00 PM EDT [facility] Name Value Range Interpretation Code Description Data Carmen rce(s) Supporting Document(s) Iron [Mass/volume] in Serum or Plasma 91 UG/DL 42 - 135 [facility] ID Date Data Source [id number] 07/02/2021 02:33:00 PM EDT [facility] Name Value Range Interpretation Code Description Data Carmen rce(s) Supporting Document(s) CBC NO DIFF [facility] ital COMPLETE BLOOD COUNT Leukocytes [#/volume] in Blood by Automated count 4.7 10^3/uL 4.2 - 1 1.0 [facility] Erythrocytes [#/volume] in Blood by Automated count 3.99 10^6/uL 4. 20 - 5.40 L [facility] Hemoglobin [Mass/volume] in Blood 12.7 g/dL 12.0 - 16.0 [facility] Hematocrit [Volume Fraction] of Blood by Automated count 37.1 % 3 7.0 - 47.0 [facility] Erythrocyte mean corpuscular volume [Entitic volume] by Auto mated count 93.0 fL 81.0 - 101 [facility] Erythrocyte mean corpuscular hemoglobin [Entitic mass] by Automated count 31.8 pg 27.0 - 34.0 [facility] Erythrocyte mean corpuscular hemoglobin concentration [Mass/volume] by Automated count 34.2 g/dL 31.0 - 36.0 [facility] Erythrocyte distribution width [Ratio] by Automated count 13.1 % 11.5 - 14.5 [facility] Platelets [#/volume] in Blood by Automated count 231 10^3/uL 150 - 45 0 [facility] Platelet mean volume [Entitic volume] in Blood by Automated count 9.9 fL 7.4 - 10.4 [facility] ID Date Data Source [id number] 06/21/2021 07:49:00 AM EDT [facility] Name Value Range Interpretation Code Description Data Carmen rce(s) Supporting Document(s) CULTURE URINE [facility] spital _CULTURE URINE_$$[id number]$$331928$$557546$$020225$$571424$$114442$$262820$$532069$$339922$$ 257568$$627931$$113823$$528479$$792426$$988421$$690199$$373189$$676351$$376887$$ 777678$$964656$$193628$$551866$$532490$$486623$$505770$$126877 -- Continued on next page --Patient: YUE Welch Order: [id number] Page 2Culture: CULTURE URINE Status: Final ====$$[id number]$$[id number] DATE/TIME: 06/20/2021 11:05Culture: CULTURE URINE Status: FinalUrine Culture,Comprehensive: S5Carls urogenital flora25,000-50,000 colony forming units per mLP1 Test performed by: [facility] Cathryn JONES #: [id number] [address] [place] [address] [phone] [facility] [address]Kaxavqy Director : Reyes José MD NPI #:Administrative Tech : 06/21/21.0749.XMT.SENT REF 06/21/21.0749.CM .to DIDIER RUTH via fax ID Date Data Source [id number] 06/07/2021 09:25:00 AM EDT [facility] ([facility]) Name Value Range Interpretation Code Description Data Carmen rce(s) Supporting Document(s) Group A Strep Culture Laboratory test result [facility] ([facility]) No Rx ID Date Data Source [id number] 06/07/2021 12:00:00 AM EDT [facility] Name Value Range Interpretation Code Description Data Carmen rce(s) Supporting Document(s) SARS-CoV2 Rapid Antigen Negative [facility] This lab was reported by eRgina Vicente Judi. ID Date Data Source [id number] 04/26/2021 08:06:00 PM EDT [facility] Name Value Range Interpretation Code Description Data Carmen rce(s) Supporting Document(s) Ferritin [Mass/volume] in Serum or Plasma 147.3 ng/mL 3.0 - 105 H [facility] ID Date Data Source [id number] 04/26/2021 08:04:00 PM EDT [facility] Name Value Range Interpretation Code Description Data Carmen rce(s) Supporting Document(s) Iron [Mass/volume] in Serum or Plasma 142 UG/DL 42 - 135 H [facility] ID Date Data Source [id number] 04/26/2021 03:04:00 PM EDT [facility] Name Value Range Interpretation Code Description Data Carmen rce(s) Supporting Document(s) CBC NO DIFF [facility] ital COMPLETE BLOOD COUNT Leukocytes [#/volume] in Blood by Automated count 5.8 10^3/uL 4.2 - 1 1.0 [facility] Erythrocytes [#/volume] in Blood by Automated count 4.20 10^6/uL 4. 20 - 5.40 [facility] Hemoglobin [Mass/volume] in Blood 13.1 g/dL 12.0 - 16.0 [facility] Hematocrit [Volume Fraction] of Blood by Automated count 39.9 % 3 7.0 - 47.0 [facility] Erythrocyte mean corpuscular volume [Entitic volume] by Auto mated count 95.0 fL 81.0 - 101 [facility] Erythrocyte mean corpuscular hemoglobin [Entitic mass] by Automated count 31.2 pg 27.0 - 34.0 [facility] Erythrocyte mean corpuscular hemoglobin concentration [Mass/volume] by Automated count 32.8 g/dL 31.0 - 36.0 [facility] Erythrocyte distribution width [Ratio] by Automated count 13.6 % 11.5 - 14.5 [facility] Platelets [#/volume] in Blood by Automated count 180 10^3/uL 150 - 45 0 [facility] Platelet mean volume [Entitic volume] in Blood by Automated count 10.0 fL 7.4 - 10.4 [facility] ID Date Data Source [id number] 04/26/2021 01:23:00 PM EDT [facility] Name Value Range Interpretation Code Description Data Carmen rce(s) Supporting Document(s) CULTURE URINE [facility] _CULTURE URINE_$$[id number]$$779932$$500700$$139846$$804450$$368772$$671760$$008951$$550594$$ 083828$$510792$$172956$$423577$$254688$$503695$$922430$$820301$$898930$$054941$$ 915452$$180877$$941907$$468490$$341413$$211981$$700343$$466257 -- Continued on next page --Patient: YUE Welch Order: [id number] Page 2Culture: CULTURE URINE Status: Final ==== -- Continued on next page --Patient: YUE Welch Order: [id number] Page 2Culture: CULTURE URINE Status: Prelim =====$$[id number]$$[id number] DATE/TIME: 04/26/2021 12:06Culture: CULTURE URINE Status: FinalIsolate [...] on 04/24/2021 06:12 ET Escherichia coliUrine Culture,Comprehensive: [id number] coli Flag: APatient: YUE Welch Order: [id number] Page 3Culture: CULTURE URINE Status: Final ISOLATE [...] S S . . . . . .90048-6Lravpbxpyv S S . . . . . .267-5Imipenem S S . . . . . .279- 0Levofloxacin S S . . . . . .00447-1Sqfnltfvl S S . . . . . .6652-2Nitrofurantoin S S . . . . . .363-2Piperacillin/Tazobactam S S . . . . . .412-7Tetracycline S S . . . . . .496-0Tobramycin S S . . . . . .508-2Trimethoprim/Sulfa S S . . . . . .516-5P1 Test performed by: [facility] JONES #: [id number] [address] [place] [address] [id number] [facility] [address]Dpbpxng Director : Reyes José MD NPI #:Administrative Tech : 04/24/21.2011.XMT.SENT REF 04/26/21.1324.XMT.SENT REF 04/26/21.1324. .to [facility] via fax ID Date Data Source [id number] 03/02/2021 01:55:00 PM EDT [facility] Name Value Range Interpretation Code Description Data Carmen rce(s) Supporting Document(s) CULTURE URINE [facility] _CULTURE URINE_$$[id number]$$616998$$317036$$585354$$039231$$377462$$812300$$317127$$821142$$ 772635$$520707$$082952$$269499$$926456$$290660$$927500$$040079$$778543$$118247$$ 644486$$273746$$531074$$416202$$682565$$237015$$728817$$490884 -- Continued on next page --Patient: YUE Welch Order: Page 2Culture: CULTURE URINE Status: Final ==== -- Continued on next page --Patient: YUE Welch Order: [id number] Page 2Culture: CULTURE URINE Status: Prelim =====$$[id number]$$[id number] DATE/TIME: 03/02/2021 08:07Culture: CULTURE URINE Status: FinalIsolate [...] on 02/28/2021 07:31 ET Escherichia coliUrine Culture,Comprehensive: [id number] coli Flag: APatient: YUE Welch Order: [id number] Page 3Culture: CULTURE URINE Status: Final ISOLATE [...] S S . . . . . .53936-8Aeewnepsld S S . . . . . .267-5Imipenem S S . . . . . .279- 0Levofloxacin S S . . . . . .25902-4Eamjomive S S . . . . . .6652-2Nitrofurantoin S S . . . . . .363-2Piperacillin/Tazobactam S S . . . . . .412-7Tetracycline S S . . . . . .496-0Tobramycin S S . . . . . .508-2Trimethoprim/Sulfa S S . . . . . .516-5P1 Test performed by: [employer] [facility] #: [id number] [address] [place] [address] [id number] [facility] [address] Director : Reyes José MD NPI #:Administrative Tech : 03/01/21.0609.XMT.SENT REF 03/02/21.1355.XMT.SENT REF 03/02/21.1355. .to [facility] via fax ID Date Data Source [id number] 01/22/2021 05:00:00 PM EST [facility] Name Value Range Interpretation Code Description Data Cramen rce(s) Supporting Document(s) SOURCE: Genital [facility] al Chlamydia trachomatis rRNA [Presence] in Unspecified specimen by Probe and target amplification method Negative Negative [facility] Neisseria gonorrhoeae rRNA [Presence] in Unspecified specimen by Probe and target amplification method Negative Negative [facility] Trichomonas vaginalis DNA [Presence] in Unspecified specimen by Probe and target amplification method Negative Negative [facility] ID Date Data Source [id number] 12/27/2020 06:50:00 AM EST [facility] Name Value Range Interpretation Code Description Data Carmen rce(s) Supporting Document(s) SARS-CoV-2, PRAVIN Not Detected Not Detected [facility] This nucleic acid amplification test was developed and its performancecharacteristics determined by [employer]. Nucleic acidamplification tests include RT-PCR and TMA. [...] in this assay. ID Date Data Source [id number] 12/03/2020 02:12:00 PM EST [facility] Name Value Range Interpretation Code Description Data Carmen rce(s) Supporting Document(s) COVID-19 PRAVIN (SARS-CoV-2) NOT DETECTED NOT DETECTED [facility] A Not Detected (negative) test result [...] findings,re- testing should be considered in consultation with[facility] authorities. Laboratory test results shouldalways be considered in the context of clinicalobservations and epidemiological data in making a finaldiagnosis and patient management decisions.Please review the "Fact Sheets" and FDA authorizedlabeling available for health care providers andpatients using the following websites:https://www.Cloud [employer]ity.com/home/Covid-19/HCP/NAAT/fact-kzagg1vvrck://www.Downtyme.Stockdrift/home /Covid-19/Patients/NAAT/fact-cxoju1Npko test has been authorized by the FDA under anEmergency Use Authorization (EUA) for use by authorizedlaboratories.Due to the current public health emergency, [facility] is receiving a high volume of samples [...] about COVID-19 can be f oundat the [employer] website:www.Capical/Covid19.THIS TEST WAS PERFORMED AT:[facility] [id number] MERATI,MD ID Date Data Source [id number] 11/25/2020 01:33:00 PM EST [facility] Name Value Range Interpretation Code Description Data Carmen rce(s) Supporting Document(s) COVID-19 PRAVIN (SARS-CoV-2) NOT DETECTED NOT DETECTED [facility] A Not Detected (negative) test result [...] findings,re- testing should be considered in consultation with[facility] authorities. Laboratory test results shouldalways be considered in the context of clinicalobservations and epidemiological data in making a finaldiagnosis and patient management decisions.Please review the "Fact Sheets" and FDA authorizedlabeling available for health care providers andpatients using the following websites:https://www.[employer].com/home/Covid-19/HCP/NAAT/fact-tbdwg7jrfxy://www.Downtyme.com/home /Covid-19/Patients/NAAT/fact-kdhsj3Silm test has been authorized by the FDA under anEmergency Use Authorization (EUA) for use by authorizedlaboratories.Due to the current public health emergency, [facility] is receiving a high volume of samples [...] about COVID-19 can be f oundat the [employer] website:www.Capical/Covid19.THIS TEST WAS PERFORMED AT:[facility] [id number] MERATI,MD ID Date Data Source [id number] 11/23/2020 04:40:00 PM EST [facility] Name Value Range Interpretation Code Description Data Carmen rce(s) Supporting Document(s) COVID-19 PRAVIN (SARS-CoV-2) NOT DETECTED NOT DETECTED [facility] A Not Detected (negative) test result [...] findings,re- testing should be considered in consultation with[facility]. Laboratory test results shouldalways be considered in the context of clinicalobservations and epidemiological data in making a finaldiagnosis and patient management decisions.Please review the "Fact Sheets" and FDA authorizedlabeling available for health care providers andpatients using the following websites:https://www.[employer].com/home/Covid-19/HCP/NAAT/fact-xalin6salxn://www.Downtyme.com/home /Covid-19/Patients/NAAT/fact-yormf5Fuwp test has been authorized by the FDA under anEmergency Use Authorization (EUA) for use by authorizedlaboratories.Due to the current public health emergency, [facility] is receiving a high volume of samples [...] about COVID-19 can be f oundat the [employer] website:www.[place].Stockdrift/Covid19.THIS TEST WAS PERFORMED AT:[facility] [id number] MERATI,MD ID Date Data Source [id number] 11/10/2020 11:24:[address] [facility] Normal result is "[employer]Now Covid-19 Ag n egative"[employer]Now Covid-19 Ag is a rapid lateral flowimmunochromatographic immunoassayThis test detects both viable(live) and non-viable, SARS-COVand SARS-COV-2.Positive test results do not differentiate between SARS-COVand NXYE-BTA-4Gabxedzv results , from patients with symptom onset beyondseven days, should be treated as presumptive andconfirmation with a molecular assay, if necessary, forpatient managementIf the differentiation of specific SARS viruses and strainsis needed, additional testing, in consultation with stateand local public health departments, is required.SARS-CoV-2 Ag Resp Ql IA.rapid Name Value Range Interpretation Code Description Data Carmen rce(s) Supporting Document(s) ID Date Data Source [id number] 11/09/2020 01:32:[address] [facility] Name Value Range Interpretation Code Description Data Carmen rce(s) Supporting Document(s) COVID-19 PRAVIN (SARS-CoV-2) NOT DETECTED NOT DETECTED [facility] A Not Detected (negative) test result [...] findings,re- testing should be considered in consultation with[facility] authorities. Laboratory test results shouldalways be considered in the context of clinicalobservations and epidemiological data in making a finaldiagnosis and patient management decisions.Please review the "Fact Sheets" and FDA authorizedlabeling available for health care providers andpatients using the following websites:https://www.[employer].Stockdrift/home/Covid-19/HCP/NAAT/fact-kwcud5rlule://www.Downtyme.Stockdrift/home /Covid-19/Patients/NAAT/fact-bberf7Jocp test has been authorized by the FDA under anEmergency Use Authorization (EUA) for use by authorizedlaboratories.Due to the current public health emergency, [facility] is receiving a high volume of samples [...] about COVID-19 can be f oundat the [employer] website:www.[place].Stockdrift/Covid19.THIS TEST WAS PERFORMED AT:[facility] [id number] MERATI,MD ID Date Data Source [id number] 11/03/2020 02:30:00 PM [facility] Name Value Range Interpretation Code Description Data Carmen rce(s) Supporting Document(s) CBC NO DIFF [facility] ital COMPLETE BLOOD COUNT Leukocytes [#/volume] in Blood by Automated count 5.0 10^3/uL 4.2 - 1 1.0 [facility] Erythrocytes [#/volume] in Blood by Automated count 4.31 10^6/uL 4. 20 - 5.40 [facility] Hemoglobin [Mass/volume] in Blood 13.4 g/dL 12.0 - 16.0 [facility] Hematocrit [Volume Fraction] of Blood by Automated count 39.5 % 3 7.0 - 47.0 [facility] Erythrocyte mean corpuscular volume [Entitic volume] by Auto mated count 91.6 fL 81.0 - 101 [facility] Erythrocyte mean corpuscular hemoglobin [Entitic mass] by Automated count 31.1 pg 27.0 - 34.0 [facility] Erythrocyte mean corpuscular hemoglobin concentration [Mass/volume] by Automated count 33.9 g/dL 31.0 - 36.0 [facility] Erythrocyte distribution width [Ratio] by Automated count 12.9 % 11.5 - 14.5 [facility] Platelets [#/volume] in Blood by Automated count 217 10^3/uL 150 - 45 0 [facility] Platelet mean volume [Entitic volume] in Blood by Automated count 10.4 fL 7.4 - 10.4 [facility] ID Date Data Source [id number] 10/31/2020 11:47:[address] [facility] Name Value Range Interpretation Code Description Data Carmen rce(s) Supporting Document(s) COVID-19 PRAVIN (SARS-CoV-2) NOT DETECTED NOT DETECTED [facility] A Not Detected (negative) test result [...] health care providers andpatients using the following websites:https://www.Downtyme.Stockdrift/home/Covid-19/HCP/QuestIVD/fact-sheet. htmlhttps://www.Downtyme.Stockdrift/home/Covid-19/Patients/QuestIVD/fact-sheet. htmlThis test has been authorized by the FDA under anEmergency Use Authorization (EUA) for use by authorizedlaboratories.Due to the current public health emergency, [facility] is receiving a high volume of samples [...] information about COVID-19 can be foundat the [employer] website:www.[place].Stockdrift/Covid19.THIS TEST WAS PERFORMED AT:[facility] [id number] MERATI,MD ID Date Data Source [id number] 10/25/2020 06:07:[address] [facility] Name Value Range Interpretation Code Description Data Carmen rce(s) Supporting Document(s) COVID-19 PRAVIN (SARS-CoV-2) NOT DETECTED NOT DETECTED [facility] A Not Detected (negative) test result [...] findings,re- testing should be considered in consultation with[facility] health authorities. Laboratory test results shouldalways be considered in the context of clinicalobservations and epidemiological data in making a finaldiagnosis and patient management decisions.Please review the "Fact Sheets" and FDA authorizedlabeling available for health care providers andpatients using the following websites:https://www.Cloud [employer].Stockdrift/home/Covid-19/HCP/QuestIVD/fact-sheet.htmlhttps://www.[employer]exio/home/Covid-19/Patients/QuestIVD/fact-sheet.htmlThis test has been authorized by the FDA under anEmergency Use Authorization (EUA) for use by authorizedlaboratories.Due to the current public health emergency, [facility] is receiving a high volume of samples [...] information about COVID-19 can be foundat the [employer] website:www.[place].Stockdrift/Covid19.THIS TEST WAS PERFORMED AT:[facility] [id number] MERATI,MD ID Date Data Source [id number] 09/25/2020 11:24:00 AM EST [facility] Method of Collection:: Voided Name Value Range Interpretation Code Description Data Carmen rce(s) Supporting Document(s) Hemoglobin [Moles/volume] in Blood 13.1 g/dL 10.7-15.4 N [facility] Hematocrit [Volume Fraction] of Blood by Automated count 40.2 % 3 7-47 N [facility] ID Date Data Source [id number] 09/25/2020 02:37:[address] [facility] Method of Collection:: Voided Name Value Range Interpretation Code Description Data Carmen rce(s) Supporting Document(s) Glucose [Mass/volume] in Serum or Plasma 88 mg/dL 74-106 N [facility] ID Date Data Source [id number] 09/28/2020 01:42:[address] [facility] Method of Collection:: Voided Name Value Range Interpretation Code Description Data Carmen rce(s) Supporting Document(s) Varicella zoster virus IgG Ab [Units/volume] in Serum by Immunoassay 1445.00 index [facility] Index Interpretatio n --------- <135.00 Negative [...] Antibody Immunity Screen, ACIF.THIS TEST WAS PERFORMED AT:[facility] [id number] MERATI,MD ID Date Data Source [id number] 09/25/2020 11:34:[address] [facility] Method of Collection:: Voided Name Value Range Interpretation Code Description Data Carmen rce(s) Supporting Document(s) Color of Urine [facility] Appearance of Urine CLEAR Abnormal (applies to non-nu meric results) [facility] pH of Urine by Test strip 8.5 5-8 [facility] Specific gravity of Urine by Refractometry 1.024 1.005-1.030 [facility] Leukocyte esterase [Presence] in Urine by Test strip NEGAT PEDRO [facility] Nitrite [Presence] in Urine by Test strip NEGATIVE [facility] Protein [Presence] in Urine by Test strip NEGATIVE [facility] Glucose [Mass/volume] in Urine by Automated test strip NEGATIVE NEG ATIVE [facility] Ketones [Presence] in Urine by Test strip NEGATIVE [facility] Urobilinogen [Presence] in Urine 0.2-1 EU/dl [facility] Bilirubin.total [Presence] in Urine by Automated test strip NEGATIVE [facility] Erythrocytes [#/volume] in Urine by Test strip NEGATIVE NEGATIVE [facility] URINE MICROSCOPIC ADDED NO [facility] ID Date Data Source [id number] 09/25/2020 10:45:00 AM EST [facility] Patient Name: STEVE TURNER OB: 1995 Sex: F Pt Unit #: [id number] Location:AMB.EXT Provider: Visit Date/Time: 09/25/20 Primary Insurance: Self Pay Secondary Insurance: ADDENDUM Office Procedure Documentation entered by Manisha Stephen 09/25/20 11:19: Office Meds tuberculin PPD Performing Provider: RACHEL Sargent Administered by: Manisha Stephen on 09/25/20 11:00 Dose Route Admin Location Lot Number Expiration Date NDC Manufactu rer 0.1 mL intradermal left forearm [id number] 06/16/22 57239-893-24 [employer] <Electronically signed by Manisha Stephen > [...] Med physical. Pt will be starting the [employer] program in October. Pt states that she has been well and has no current medical concerns. Veterinary Medical Officer Required: No Accompanied by: Self / Same [...] Screening Screening Have you traveled outside of [facility] or [facility] in the last 14 days.: No Has patient experienced coronavirus symptoms: No [facility] Surgical History History of placement of ear tubes Hx of section Status post right foot surgery Social History Does the Patient have a Healthcare Proxy: No Does Patient have a DNR?: No Does Patient have a Living Will?: No household members: family marital status: Single lives independently: Yes number of children: 2 service: No retirement: No current occupational exposures/hazards: No pets and [...] of systems. She will be starting the [employer] program here at [facility] in October. She has history ofanemia. [...] Today Z02.1 <Electronically signed by Kristine Huitron [employer]IVESTOCK [employer]ORER> 09/25/20 1112 Name Value Range Interpretation Code Description Data Carmen rce(s) Supporting Document(s) Procedure Social History Code Duration Value Status Description Data Source(s ) Smoking 06/07/2021 12:00:00 AM EDT Patient has never smoked co mpleted Patient has never smoked [facility] ([facility]) 09/25/2020 10:59:21 AM EST Never smoker completed Never [facility] Smoking 09/25/2020 10:59:00 AM EST Never smoker completed Never [facility] Vital Signs ID Date Data Source UNK Name Value Range Interpretation Code Description Data Source(s) Body mass index (BMI) [Ratio] 18.8 kg/m2 18.8 k g/m2 [facility] ([facility]) Systolic blood pressure 123 mm[Hg] 123 mm[Hg] [facility] ([facility], [facility]) Diastolic blood pressure 86 mm[Hg] 86 mm[Hg] [facility] ([facility]) Heart rate 86 /min 86 /min [facility] ([facility]) Respiratory rate 16 /min 16 /min [facility] ( [facility]) Oxygen saturation in Arterial blood by Pulse oximetry 96 % 96 % [facility] ([facility]) Body temperature 98.9 [degF] 98.9 [degF] [facility] ([facility], [facility]) Body weight 106.00 [lb_av] 106.00 [lb_av] MEDEN T ([facility], [facility]) Body height 63 [in_i] 63 [in_i] [facility] ([facility], [facility]) 5'3"
--- NOTE | 2021-10-30 12:31 | REP ---
INDICATION: lower back pain " felt pop". COMPARISON: None. TECHNIQUE: Five views of the lumbar spine were obtained. FINDINGS: There is maintenance of the normal lumbar lordosis. The intervertebral disc spaces of the lower thoracic and lumbar spine are preserved. The lower thoracic and lumbar vertebral bodies are normal. There is no evidence of spondylolisthesis or acute bony injury. The SI joints are normal. An IUD is noted in the pelvis. IMPRESSION: Normal lumbar spine. <Electronically signed by Rajeev Rankin > 10/30/21 2533
[2021-10-30] MEDS ORDERED: CYCL5TAB PO (12:38)
[2021-10-30] MEDS ORDERED: LIDO5DIS41 TD (12:42)
[2021-10-30 12:48] VITALS: BP 117/68
[2021-10-31] MEDS ORDERED: **NOTE PATIENT COMMENT** MISC XX ONE
== END 2021-10-30 13:12 | disposition home or self-care (01) ==
LOC: M ED 09:37
DX: M54.50 Low back pain, unspecified (principal); Y92.9 Unspecified place or not applicable; Y93.F2 Activity, caregiving, lifting; Y99.0 Civilian activity done for income or pay
CPT/HCPCS: 36415; 72110; 80047; 84702; 96372; 99284; J1885

== ENCOUNTER 2021-11-27 15:12 | Emergency (ER) | payer OTHER ==
[~2021-11-27] VITALS: Ht 160 cm; Wt 48.2 kg
[~2021-11-27 15:12] MED LIST: CYCL5TAB PO; LIDO5DIS41 TD
[2021-11-27 18:08] VITALS: BP 122/69
== END 2021-11-27 18:13 | disposition home or self-care (01) ==
LOC: M ED 15:12
DX: S93.601A Unspecified sprain of right foot, initial encounter (principal); W23.1XXA Caught, crushed, jammed, or pinched between stationary objects, initial encounter; Y92.9 Unspecified place or not applicable; Y93.9 Activity, unspecified; Y99.9 Unspecified external cause status

== ENCOUNTER → 2024-12-19 | Outpatient (CLI) | payer OTHER ==
[~2024-12-19] MED LIST changes: -CYCL5TAB PO; +CYCL5TAB4 PO
[2024-12-19 14:42] LABS: BASO % 0.6 % (0.0-1.0); EOS # 0.1 10^3/uL (0.0-0.5); EOS % 1.3 % (0.0-3.0); HEMATOCRIT 37.8 % (36.0-47.0); HEMOGLOBIN 12.6 g/dl (12.0-15.5); LYMPH # 1.2 10^3/uL (1.5-5.0); LYMPH % 22.1 % (24.0-44.0); MEAN CORPUSCULAR HEMOGLOBIN 30.8 pg (27.0-33.0); MEAN CORPUSCULAR HGB CONC 33.3 g/dl (32.0-36.5); MEAN CORPUSCULAR VOLUME 92.4 fl (80.0-96.0); MONO # 0.5 10^3/uL (0.0-0.8); MONO % 8.8 % (2.0-8.0); NEUTROPHILS # 3.6 10^3/uL (1.5-8.5); PLATELET COUNT, AUTOMATED 189 10^3/uL (150-450); RED BLOOD COUNT 4.09 10^6/uL (4.00-5.40); WHITE BLOOD COUNT 5.4 10^3/uL (4.0-10.0)
[2024-12-19 15:13] LABS: C REACTIVE PROTEIN QUANTITATIV < 0.50 MG/DL (<1.0)
[2024-12-19 15:14] LABS: IMMUNOGLOBULIN A 296.9 MG/DL (40-350)
[2024-12-19 15:15] LABS: IMMUNOGLOBULIN G 1351 MG/DL (650-1600)
[2024-12-19 15:16] LABS: ALBUMIN 4.1 G/DL (3.2-5.2); ALKALINE PHOSPHATASE 59 U/L (35-104); ALT/SGPT 17 U/L (7.0-40); AST/SGOT 15 U/L (<34); BILIRUBIN,TOTAL 0.8 MG/DL (0.3-1.2); BLOOD UREA NITROGEN 12 MG/DL (9-23); CALCIUM LEVEL 8.9 MG/DL (8.5-10.1); CARBON DIOXIDE LEVEL 26 MMOL/L (20-31); CHLORIDE LEVEL 104 MMOL/L (98-107); CREATININE FOR GFR 0.68 MG/DL (0.55-1.30); GLOMERULAR FILTRATION RATE > 60.0 (>60); GLUCOSE, FASTING 92 MG/DL (60-100); IMMUNOGLOBULIN M 283.2 MG/DL (50-300); POTASSIUM SERUM 4.3 MMOL/L (3.5-5.1); SODIUM LEVEL 142 MMOL/L (136-145); TOTAL PROTEIN 7.6 G/DL (5.7-8.2)
== END ==
LOC: MERGE 09:30 → M PLALAB 09:30
PROVIDERS: ATTEND Internal Medicine Infectious Disease
DX: A04.71 Enterocolitis due to Clostridium difficile, recurrent (principal)